=== PATIENT | male | born 1960 | race African-American/Black ===

== ENCOUNTER → 2016-11-27 14:32 | Emergency (ER) | payer SELFPAY ==
[~2016-11-27 14:32] MED LIST: Naproxen TAB* 250 MG PO ONE
[2016-11-27 14:39] VITALS: BP 177/98
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
== END | disposition home or self-care (01) ==
LOC: ED 14:32
DX: S70.02XA Contusion of left hip, initial encounter (principal); S76.012A Strain of muscle, fascia and tendon of left hip, initial encounter; S46.912A Strain of unspecified muscle, fascia and tendon at shoulder and upper arm level, left arm, initial encounter; M25.552 Pain in left hip; Z87.891 Personal history of nicotine dependence; V49.9XXA Car occupant (driver) (passenger) injured in unspecified traffic accident, initial encounter; Y93.9 Activity, unspecified; Y92.9 Unspecified place or not applicable; S16.1XXA Strain of muscle, fascia and tendon at neck level, initial encounter
CPT/HCPCS: 72040; 99282; A9270-GY

== ENCOUNTER 2018-04-04 19:43 | Emergency (ER) | payer OTHER ==
[2018-04-04] MEDS ORDERED: NS 0.9% 1000 ML* 1,000 ML IV ONE ×2 (20:03→20:07)
[2018-04-04] MEDS ORDERED: fentaNYL* 50 MCG/ML 2 ML VIAL (100 MCG VIAL) IV SLOW PU ONE (20:05)
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
[2018-04-04 21:16] VITALS: BP 0/0
== END 2018-04-04 21:15 | disposition left against medical advice (07) ==
LOC: ED 19:43
DX: R07.89 Other chest pain (principal); M25.512 Pain in left shoulder; R00.0 Tachycardia, unspecified; Z87.891 Personal history of nicotine dependence
CPT/HCPCS: 93005; 96374; 99282; J3010

== ENCOUNTER 2018-04-06 10:08 | Emergency (ER) | payer OTHER ==
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
[2018-04-06] MEDS ORDERED: Labetalol IV* 5 MG/ML 20 ML VIAL IV PUSH ONE (10:39)
[2018-04-06 11:07] LABS: ABS Basophils 0 10^3/ul (0-0.2); ABS Eosinophils 0 10^3/ul (0-0.6); ABS Monocytes 0.4 10^3/ul (0-0.8); ABS Nucleated RBC 0 10^3/ul; Eosinophil % 0.6 %; Hematocrit 33 % (42-52); Hemoglobin 11.3 g/dl (14.0-18.0); Lymphocyte % 21.8 %; Mean Corpuscular HGB Conc 34 g/dl (31-36); Mean Corpuscular Hemoglobin 34 pg (27-31); Mean Corpuscular Volume 99 fL (80-94); Mean Platelet Volume 10.4 fL (7.4-10.4); Nucleated Red Blood Cells % 0.2; Platelet Count 110 10^3/ul (150-450); Red Blood Count 3.34 10^6/ul (4.00-5.40); Red Cell Distribution Width 13 % (10.5-15); White Blood Count 4.4 10^3/ul (3.5-10.8)
[2018-04-06 11:41] LABS: EGFR Non-African American 68.5 (>60)
[2018-04-06] MEDS ORDERED: NS 0.9% 1000 ML* 1,000 ML IV ONE (12:10)
[2018-04-06] MEDS ORDERED: Insulin REGULAR(*) 1 UNITS UNIT SUBCUT ONE (12:10)
[2018-04-06] MEDS ORDERED: Hydrochlorothiazide TAB* 25 MG PO ONE (12:11)
[2018-04-06] MEDS ORDERED: Lisinopril TAB* 10 MG PO ONE (12:11)
[2018-04-06 12:38] LABS: Urine Appearance Clear; Urine Blood Negative (Negative); Urine Color Straw; Urine Ketones Trace (Negative); Urine Protein Negative (Negative); Urine Specific Gravity 1.018 (1.010-1.030); Urine Urobilinogen Negative (Negative)
[2018-04-06 13:23] VITALS: BP 192/94
== END 2018-04-06 13:37 | disposition home or self-care (01) ==
LOC: ED 10:08
DX: R07.81 Pleurodynia (principal); R06.02 Shortness of breath; M19.011 Primary osteoarthritis, right shoulder; E11.9 Type 2 diabetes mellitus without complications; I10 Essential (primary) hypertension; Z87.891 Personal history of nicotine dependence
CPT/HCPCS: 36415; 80053; 80307; 80320; 81003; 82550; 85025; 96374; 99283; A9270-GY; G0480

== ENCOUNTER 2018-09-05 20:08 | Inpatient (IN) | payer OTHER ==
[2018-09-05] MEDS ORDERED: NS 0.9% 1000 ML** 1,000 ML IV ONE (20:11)
[2018-09-05] MEDS ORDERED: Ticagrelor* 90 MG TAB PO ONE (20:11)
[2018-09-05] MEDS ORDERED: Heparin for STEMI(*) 5,000 UNITS/ML 1 ML VIAL IV ONE (20:11)
[2018-09-05] MEDS ORDERED: Nitroglycerin TAB 0.4 MG* 0.4 MG TAB ONE (20:22)
[2018-09-05] MEDS ORDERED: nitroGLYCERIN DRIP* 25,000 MCG/250 ML BTL IV ONE (20:22)
--- NOTE | 2018-09-05 20:22 | ED ---
HPI Chest Pain - HPI Summary HPI Summary: This patient is a 57 year old male brought in by ambulance to [facility] with a chief complaint of chest pain since 1 hour ago. Patient states that he was watching TV, about to eat dinner when he felt a sudden crushing chest pain. Patient states that the pain stays relatively constant, not worsening nor improving. The pain is located in his midsternum and does not radiate. The pain is rated 3/10 in severity. Symptoms aggravated by nothing. Symptoms alleviated by nothing. Patient additionally reports SOB, cough. Patient denies nausea - History of Current Complaint Chief Complaint: EDChestPainROMI Time Seen by Provider: 09/05/18 20:11 Hx Obtained From: Patient Onset/Duration: Started Hours Ago, Still Present Timing: Constant Initial Severity: Mild Current Severity: Mild Pain Intensity: 3 Pain Scale Used: 0-10 Numeric Chest Pain Location: Mid Sternal Chest Pain Radiates: No Character: Crushing Aggravating Factor(s): Nothing Alleviating Factor(s): Nothing Associated Signs and Symptoms: Positive: Negative - nausea, Other: - SOB, cough - Allergy/Home Medications Allergies/Adverse Reactions: Allergies Allergy/AdvReac Type Severity Reaction Status Date / Time No Known Allergies Allergy Verified 04/06/18 10:29 PMH/Surg Hx/FS Hx/Imm Hx Previously Healthy: No Endocrine/Hematology History: Reports: Hx Diabetes - TYPE 2 Cardiovascular History: Reports: Hx Hypertension - WELL CONTROLLED Sensory History: Reports: Hx Contacts or Glasses - READING GLASSES Denies: Hx Hearing Aid Opthamlomology History: Reports: Hx Contacts or Glasses - READING GLASSES - Surgical History Surgery Procedure, Year, and Place: HERNIA REPAIR 25 YRS AGO Hx Anesthesia Reactions: No Infectious Disease History: No Infectious Disease History: Denies: Traveled Outside the [place] in Last 30 Days - Family History Known Family History: Negative: Cardiac Disease, Hypertension, Diabetes - Social History Alcohol Use: Weekly Hx Substance Use: No Substance Use Type: Reports: None Hx Tobacco Use: Yes Smoking Status (MU): Former Smoker Type: Cigarettes Have You Smoked in the Last Year: Yes Review of Systems Negative: Fever Positive: Chest Pain Positive: Shortness Of Breath, Cough Negative: Nausea All Other Systems Reviewed And Are Negative: Yes Physical Exam - Summary Physical Exam Summary: Appearance: Well-appearing, Well-nourished, lying in bed with discomfort Skin: Warm, dry, no obvious rash Eyes: sclera anicteric, no conjunctival pallor ENT: mucous membranes moist, pharynx appears normal Neck: Supple, nontender Respiratory: Clear to auscultation, no signs of respiratory distress Cardiovascular: Normal S1, S2. No murmurs. Normal distal pulses in tibial and radial bilaterally. Abdomen: Soft, nontender, normal active bowel sounds present Musculoskeletal: Normal, Strength/ROM Intact Neurological: A&Ox3, awake and alert, mentation is normal, speech is fluent and appropriate Psychiatric: affect is normal, does not appear anxious or depressed Triage Information Reviewed: Yes Vital Signs On Initial Exam: Initial Vitals Temp Pulse Resp BP Pulse Ox 98.3 F 102 16 124/82 93 09/05/18 20:16 09/05/18 20:16 09/05/18 20:16 09/05/18 20:16 09/05/18 20:16 Vital Signs Reviewed: Yes Diagnostics - Vital Signs Vital Signs Temp Pulse Resp BP Pulse Ox 09/05/18 20:16 98.3 F 102 16 124/82 93 - Laboratory Result Diagrams: 09/05/18 20:15 09/05/18 20:15 Lab Statement: Any lab studies that have been ordered have been reviewed, and results considered in the medical decision making process. - Radiology CXR Radiology Interpretation Completed By: ED Physician Summary of Radiographic Findings: CXR reveals, per ED physician, No acute process. Pending official report. - EKG 2013 Cardiac Rate: Tachycardia EKG Rhythm: Sinus Tachycardia - 102 BPM Summary of EKG Findings: An EKG, taken 2013, reveals Sinus Tachycardia (102 BPM) , normal axis, normal intervals, new T-wave elevations in v3-v4, new elevations in v4. Chest Pain Course/Dx - Course Course Of Treatment: This patient is a 57 year old male brought in by ambulance to [facility] with a chief complaint of chest pain since 1 hour ago. Patient states that he was watching TV, about to eat dinner when he felt a sudden crushing chest pain. Patient states that the pain stays relatively constant, not worsening nor improving. The pain is located in his midsternum and does not radiate. An EKG, taken 2013, reveals Sinus Tachycardia (102 BPM), normal axis, normal intervals, new T-wave elevations in v3-v4, new elevations in v4. CXR reveals, per ED physician, No acute process. Pending official report. Bloodwork Obtained. In the ED course the patient was given NS 0.9% bolus IV, NTG, Iodixanol, Heparin, Brilinta. We discussed patient care with Dr. Lambert ( Interventionalist) at 2029 and they noted patients symptoms were indicative of pericardial friction rub. As a result, he will page Dr. Miranda (Metal Bed Assembler) to preform an echo. We discussed patient care with Dr. Guo (Hospitalist) at 2119 and they agreed to accept the patient. Patient will be admitted with a dx of Pericardial friction rub. The patient is agreeable with this plan. - Diagnoses Provider Diagnoses: Pericardial friction rub, Myopericarditis - Provider Notifications Discussed Care Of Patient With: Mejia Hartman - Interventionalist Time Discussed With Above Provider: 20:30 - We discussed patient care with Dr. Lambert (Interventionalist) at 2029 and they noted patients symptoms were indicative of pericardial friction rub. As a result, he will page Dr. Miranda ( Metal Bed Assembler) to preform an echo. Instructed by Provider To: Admit As Inpatient - We discussed patient care with Dr. Guo (Hospitalist) at 2119 and they agreed to accept the patient. Discharge - Sign-Out/Discharge Documenting (check all that apply): Patient Departure Patient Received Moderate/Deep Sedation with Procedure: No - Discharge Plan Condition: Stable Disposition: ADMITTED TO [facility] - Billing Disposition and Condition Condition: STABLE Disposition: Admitted to [facility] - Attestation Statements Document Initiated by Flex: Yes Documenting Scribe: Christine Jacobs Provider For Whom Flex is Documenting (Include Credential): MD Flex Quiñones Attestation: Christine Molina, scribed for Guido Angeles MD on 09/05/18 at 2353. Scribe Documentation Reviewed: Yes Provider Attestation: The documentation as recorded by the Christine adrian accurately reflects the service I personally performed and the decisions made by , Guido Angeles MD Status of Scribe Document: Viewed
[2018-09-05] MEDS ORDERED: nitroGLYCERIN DRIP* 0 MCG/0 ML BTL ONE (20:23)
[2018-09-05] MEDS ORDERED: Iohexol 350 (CONTRAST) 200 ML MDV IV ONE ×2 (20:28→20:29)
[2018-09-05] MEDS ORDERED: Heparin(*) 1000 UNIT/ML 10 ML VIAL CATH LAB IV ONE (20:28)
[2018-09-05] MEDS ORDERED: VERAPAMIL 2.5 MG/ML 2 ML VIAL ** 5 mg/2 ml ONE (20:28)
[2018-09-05] MEDS ORDERED: nitroGLYCERIN DRIP* 25,000 MCG/250 ML BTL ONE (20:28)
[2018-09-05] MEDS ORDERED: Lidocaine 1% INJ* 10 MG/ML 30 ML SDV ONE (20:28)
[2018-09-05 20:29] LABS: ABS Lymphocytes 1.7 10^3/ul (1.0-4.8); ABS Monocytes 0.5 10^3/ul (0-0.8); ABS Neutrophils 5.7 10^3/ul (1.5-7.7); Eosinophil % 0.2 %; Hematocrit 36 % (42-52); Hemoglobin 11.9 g/dL (14.0-18.0); Lymphocyte % 21.6 %; Mean Corpuscular HGB Conc 33 g/dL (31-36); Mean Corpuscular Hemoglobin 33 pg (27-31); Mean Corpuscular Volume 98 fL (80-94); Mean Platelet Volume 9.6 fL (7.4-10.4); Platelet Count 151 10^3/uL (150-450); Red Blood Count 3.65 10^6 /uL (4.18-5.48); Red Cell Distribution Width 13 % (10.5-15)
[2018-09-05 20:42] LABS: ALT 27 U/L (7-52); AST 24 U/L (13-39); Albumin 3.9 g/dL (3.2-5.2); Albumin/Globulin Ratio 1.1 (1-3); Alkaline Phosphatase 70 U/L (34-104); Anion Gap 15 mmol/L (2-11); BUN/Creatinine Ratio 19.8 (8-20); Blood Urea Nitrogen 19 mg/dL (6-24); CO2 Carbon Dioxide 17 mmol/L (22-32); Calcium 8.9 mg/dL (8.6-10.3); Chloride 103 mmol/L (101-111); EGFR Non-African American 80.2 (>60); Globulin 3.4 g/dL (2-4); Glucose 199 mg/dL (70-100); LDL Cholesterol Direct 139 mg/dL; Potassium 3.6 mmol/L (3.5-5.0); Sodium 135 mmol/L (135-145); Total Protein 7.3 g/dL (6.4-8.9)
[2018-09-05 20:46] LABS: Activated Partial Thrombo Time 29.4 seconds (26.0-36.3); CKMB ng/mL 1.5 ng/mL (0.6-6.3); INR 1.03 (0.82-1.09)
[2018-09-05 20:47] LABS: Troponin I 0.05 ng/mL (<0.04)
[2018-09-05] MEDS ORDERED: Iodixanol* (CONTRAST) 320 MG/ML 100 ML SDV IV ONE (21:13)
[2018-09-05] MEDS ORDERED: Dextrose 50% Syringe 50 ML* 25 GM/50 ML SYRINGE IV PUSH PRN (21:31)
[2018-09-05] MEDS ORDERED: Aspirin 81 mg CHEW TAB* 81 MG TAB.CHEW PO ONE (21:33)
[2018-09-05 22:49] LABS: Erythrocyte Sed Rate 39 mm/Hr (0-19)
[2018-09-05] MEDS: Insulin LISPRO* 1 UNITS UNIT SUBCUT SCH (23:32)
--- NOTE | 2018-09-05 23:57 | HP ---
History of Present Illness - History of Present Illness Reason for Visit: chest pain History of Present Illness: PCP: Anita Patient is a 57 year old man with diabetes, hypertension, who suddenly developed 10/10 precordial chest pain at around 8pm this evening. The pain seemed pleuritic initially, then became constant, somewhat positional. He did not have associated dyspnea, nausea, vomiting, or diaphoresis. He has had a severe non-productive cough for 1 week, has not had a fever or myalgias with this. At the time of my evaluation, he is pain free. ED Course: There was initial concern regarding a STEMI in the ER. Dr. Hartman was consulted, and he evaluated patient. He heard a friction rub, and was concerned about pericarditis. Dr. Miranda was consulted, and he performed a bedside echo. Ejection fraction was estimated at 25-30%, and there was global LV dysfunction. The patient was not taken to the director labor standards. 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 Alcohol: Occassional - 5 drinks/weekend Drugs: None Lives: Other - fiance, 4 step children, 6 children from previous relationships Domestic Violence: Negative Review of Systems - Measurements Intake and Output: Intake and Output Last 24 Hours 09/03/18 09/04/18 09/05/18 09/06/18 06:59 06:59 06:59 06:59 Intake Total 1008 Balance 1008 Weight 74.843 kg Intake: IV Fluids 1008 - Review of Systems Constitutional Symptoms: Negative: Weight Gain, Weight Loss Dermatology: Positive: Normal HEENT: Positive: Normal Eyes: Positive: Normal Thyroid: Positive: Normal Pulmonary: Positive: Normal Cardiology: Positive: Chest Pain Negative: Shortness of Breath, Swelling of Ankles, Edema, Syncope, Claudication, Proximal NocturnalDyspnea Gastroenterology: Positive: Normal Genital - Urinary: Positive: Normal Musculoskeletal: Positive: Joint Stiffness Endocrinology: Positive: Diabetes Mellitus Hematologic/Lymphatic: Negative: Anemia, Use of Antiplatelet Drugs Neurology: Positive: Normal Psychiatry: Positive: Normal Objective Active Medications: Ambulatory Orders Hydrochlorothiazide TAB* [Hydrodiuril TAB*] 25 mg PO QAM 02/06/15 Lisinopril [Lisinopril 20 MG-] 20 mg PO QAM 02/06/15 Multivitamin [Multivitamins] 1 cap PO QAM 02/06/15 glipiZIDE TAB* [Glucotrol TAB*] 10 mg PO QAM 02/06/15 Naproxen TAB* [Naprosyn 375 mg TAB*] 375 mg PO Q8H PRN #25 tab 11/27/16 Cyclobenzaprine TAB* [Flexeril 10 MG TAB*] 10 mg PO TID PRN #12 tab 04/06/18 HYDROcodone/ACETAMIN 5-325 MG* [Mccarr 5-325 TAB*] 1 tab PO Q6H PRN #10 tab MDD 4 04/06/18 Vital Signs - 8 hr 09/05/18 09/05/18 09/05/18 20:16 20:35 21:14 Temperature 36.8 C Pulse Rate 102 104 98 Respiratory 16 22 31 Rate Blood Pressure 124/82 122/82 118/73 (mmHg) O2 Sat by Pulse 93 97 97 Oximetry 09/05/18 09/05/18 09/05/18 22:00 22:04 22:11 Temperature 36.6 C Pulse Rate 104 98 99 Respiratory 25 23 22 Rate Blood Pressure 132/83 132/83 (mmHg) O2 Sat by Pulse 97 97 95 Oximetry Oxygen Devices in Use Now: None Appearance: alert, no distress Eyes: No Scleral Icterus Ears/Nose/Mouth/Throat: NL Teeth, Lips, Gums Neck: NL Appearance and Movements; NL JVP, Trachea Midline, No Thyroid Enlargement, Masses, - - thyroid symmetric, but tender nodule just lateral to thyroid on left Respiratory: Symmetrical Chest Expansion and Respiratory Effort, Clear to Auscultation Cardiovascular: RRR, No Edema, - - soft friction rub audible Abdominal: NL Sounds; No Tenderness; No Distention, No Hepatosplenomegaly Lymphatic: No Cervical Adenopathy Skin: No Rash or Ulcers Neurological: Alert and Oriented x 3 Lines/Tubes/Other Access: Clean, Dry and Intact Naso-enteral Tube Nutrition: Taking PO's Result Diagrams: 09/05/18 20:15 09/05/18 20:15 Additional Lab and Data: Laboratory Tests 09/05/18 09/05/1819 20:15 20:15 20:15 ESR 39 H INR (Anticoag Therapy) 1.03 APTT 29.4 Anion Gap 15 H Glucose 199 H Lactic Acid Calcium 8.9 AST 24 ALT 27 CK-MB (CK-2) 1.5 Troponin I 0.05 H* B-Natriuretic Peptide LDL Cholesterol Direct 139 TSH 1.90 09/05/18 09/05/18 20:15 20:15 ESR INR (Anticoag Therapy) APTT Anion Gap Glucose Lactic Acid 4.6 H* Calcium AST ALT CK-MB (CK-2) Troponin I B-Natriuretic Peptide 1084 H LDL Cholesterol Direct TSH Diagnostic Imaging: Chest X-ray- negative CTA Chest: no PE, mild-mod bilat pleural effusions EKG Data: sinus tachycardia, LVH, minimal T-wave flattening II, III, aVF, ST elevations V1 -V4, T-wave inversions V5-V6 Assess/Plan/Problems-Billing Assessment: 57 year old with chest pain, jimi-pericarditis - Patient Problems (1) Myocarditis Current Visit: Yes Status: Acute Priority: High Code(s): I51.4 - MYOCARDITIS, UNSPECIFIED SNOMED Code(s): 50539317 Comment: -Due to low EF and no symptoms of LV dysfunction over time, suspect acute viral or other myocarditis. -Due to friction rub present, suspect element of pericarditis, which could explain the pain. With no effusion present, no clear need to investigate for autoimmune, fungal pericarditis -Formal echocardiogram to be completed tomorrow -Will be admitted to telemetry floor, will follow serial troponins. -Dr. Miranda will give full consultation in AM (2) Type 2 diabetes mellitus Current Visit: Yes Status: Acute Priority: Medium Comment: -May be NPO for testing in next few days -Will cut oral glipizide by half, add sliding scale Humalog. (3) Lactic acid blood increased Current Visit: Yes Status: Acute Priority: Medium Code(s): R79.89 - OTHER SPECIFIED ABNORMAL FINDINGS OF BLOOD CHEMISTRY SNOMED Code(s): 7797480 Comment: -Differential includes poor perfusion due to cardiac dysfunction, vs Type 2 lactic acidosis -not on metformin -Will repeat lactate in 3 hours. (4) Thyroiditis Current Visit: Yes Status: Acute Priority: Medium Code(s): E06.9 - THYROIDITIS, UNSPECIFIED SNOMED Code(s): 48396135 Comment: -May have tender thyroid or lymph node adjacent to thyroid w/ acute lymphadenitis -TSH normal -Will check T3, T4, and thyroid ultrasound (5) DVT prophylaxis Current Visit: Yes Status: Acute Priority: Low Code(s): Z29.9 - ENCOUNTER FOR PROPHYLACTIC MEASURES, UNSPECIFIED SNOMED Code(s): 738695829 Comment: -Low risk -Early ambulation Status and Disposition: inpatient
[2018-09-06 02:28] LABS: Troponin I 0.04 ng/mL (<0.04)
[2018-09-06] MEDS: Carvedilol TAB* 3.125 MG PO SCH ×3 (04:04→20:47)
[2018-09-06 05:14] LABS: BUN/Creatinine Ratio 15.2 (8-20); Calcium 9.1 mg/dL (8.6-10.3); EGFR African American 101.9 (>60); EGFR Non-African American 84.2 (>60); Potassium 3.9 mmol/L (3.5-5.0)
[2018-09-06 05:18] LABS: Troponin I 0.03 ng/mL (<0.04)
[2018-09-06] MEDS: Aspirin 81 mg CHEW TAB* 81 MG TAB.CHEW PO SCH (08:11)
[2018-09-06] MEDS: glipiZIDE TAB* 5 MG PO SCH (08:12)
[2018-09-06] MEDS: Lisinopril TAB* 10 MG PO SCH (08:13)
[2018-09-06] MEDS: Insulin LISPRO* 1 UNITS UNIT SUBCUT SCH ×4 (08:19→20:48)
[2018-09-06] MEDS ORDERED: Furosemide IV* 10 MG/ML 2 ML VIAL (20 MG) IV ONE ×2 (08:32→13:12)
[2018-09-06 08:36] LABS: Troponin I 0.04 ng/mL (<0.04)
[2018-09-06] MEDS ORDERED: Perflutren Lipid Microsphere* 3 ML VIAL ONE (10:29)
--- NOTE | 2018-09-06 11:44 | ECHO ---
*[facility]* [place] [address] Fax #: [phone] Transthoracic Echocardiogram Patient: Celestino, Height: 71 in / Serafin 180.3 cm : 1960 Weight: 164.7 lb / Study Date: 09/06/2018 74.8 kg Age: 57 BP: 160 / 110 Gender: M BMI/BSA: 23 kg/m^2 / HR: 98 bpm 1.94 m^2 *Exec. Creative Director: * Susan Patterson RDCS RN *Referring Physician: * Mendel Guo *Reading Physician: * Warner Miranda MD Indications: Chest Pain, unspecified. Congestive Heart Failure. History: Risk factors: Former tobacco use. Hypertension. Diabetes mellitus. Conclusions Summary: 1. Left ventricle: The cavity size is mildly dilated. Systolic function is severely reduced. The estimated ejection fraction is 10-15%. Diffuse severe hypokinesis. 2. Right ventricle: Systolic function is moderately reduced. 3. Mitral valve: There is mild to moderate regurgitation. 4. Aortic valve: There is trivial regurgitation. 5. Tricuspid valve: There is mild-moderate regurgitation. 6. Pulmonary arteries: Systolic pressure is estimated to be 40 mm Hg. 7. Study data: No prior study is available for comparison. Study data: Transthoracic echocardiogram. Procedure: Transthoracic echocardiography was performed. Image quality was good. A total of 3 ml of diluted Definity was given IV by Lidia Patterson RN, [facility] for image enhancement. Complete 2D, spectral Doppler, and color flow Doppler. Patient status: Inpatient. Patient room number: 433. No prior study is available for comparison. Rhythm: Normal sinus rhythm. Findings Left ventricle: The cavity size is mildly dilated. Systolic function is severely reduced. The estimated ejection fraction is 10-15%. Diffuse hypokinesis. Features are consistent with a pseudonormal left ventricular filling pattern, with concomitant abnormal relaxation and increased filling pressure (grade 2 diastolic dysfunction). Right ventricle: The cavity size is normal. Systolic function is moderately reduced. The estimated peak pressure is 33 mm Hg. There is borderline pulmonary hypertension. Left atrium: The atrium is mildly dilated. Right atrium: The atrium is normal in size. Mitral valve: The leaflets are mildly thickened. There is no evidence of stenosis. There is mild to moderate regurgitation. The peak diastolic gradient is 6.7 mm Hg. Aortic valve: The leaflets are mildly thickened. There is no evidence of stenosis. There is trivial regurgitation. The LVOT to aortic valve VTI ratio is 0.46. The ratio of LVOT to aortic valve peak velocity is 0.58. The ratio of LVOT to aortic valve mean velocity is 0.63. The mean systolic gradient is 2.0 mm Hg. The peak systolic gradient is 4.0 mm Hg. Tricuspid valve: The valve is structurally normal. There is no evidence of stenosis. There is mild-moderate regurgitation. Pulmonic valve: The valve is structurally normal. There is no evidence of stenosis. There is trivial regurgitation. The peak systolic gradient is 1.0 mm Hg. Aorta: Aortic root: The aortic root is not dilated. Ascending aorta: The ascending aorta is not dilated. Aortic arch: The aortic arch is not visualized. Pericardium: There is no significant pericardial effusion. Pulmonary arteries: The main pulmonary artery is normal-sized. Systolic pressure is estimated to be 40 mm Hg. Systemic veins: Inferior vena cava: The vessel is normal in size. The respirophasic diameter changes are blunted (< 50%). Measurements Left ventricle Value Ref Aortic valve Value Ref FERNANDO, LAX (H) 6.3 cm 4.2 - Kelly diam, ED 2.2 cm ----- 5.8 Peak v, S 0.97 m/sec ----- ESD, LAX (H) 5.8 cm 2.5 - Mean v, S 0.66 m/sec ----- 4.0 VTI, S 16.8 cm ----- FS, LAX (L) 8 % 25 - 43 Mean grad, S 2.0 mm Hg ----- PW, ED, LAX 1.0 cm 0.6 - Peak grad, S 4.0 mm Hg ----- 1.0 E', lat kelly, TDI (L) 4.6 cm/sec >=10.0 Mitral valve Value R ef E/e', lat kelly, TDI 28 -------- Peak E 1.29 m/sec ---- - E', med kelly, TDI (L) 3.9 cm/sec >=7.0 Peak A 0.89 m/sec - ---- E/e', med kelly, TDI 33 -------- Decel time 120 ms ---- - E', avg, TDI 4.3 cm/sec -------- Peak grad, D 6.7 mm Hg ---- - E/e', avg, TDI (H) 30 <=14 Peak E/A ratio 1.4 - ---- MR alias velocity 0.31 m/sec ----- LVOT Value Ref MR PISA radius 0.5 cm ----- Peak darby, S 0.56 m/sec -------- Max MR v 4.09 m/sec ----- Mean darby, S 0.42 m/sec -------- Regurg VTI 124.0 cm ----- VTI, S 7.7 cm -------- ERO, PISA 0.12 cm^2 ----- Mean grad, S 1 mm Hg -------- MR vol, PISA 15 ml ----- Ventricular septum Value Ref Tricuspid valve Value Ref IVS, ED, LAX 0.9 cm 0.6 - TR peak v 2.5 m/sec <=2.8 1.0 Peak RV-RA grad, S 25 mm Hg ----- Right ventricle Value Ref Aortic root Value Ref FERNANDO, LAX 3.4 cm -------- Root diam 2.8 cm <4.1 FERNANDO minor ax, A4C 3.3 cm 1.9 - Root max diam, ED 2.8 cm <4.1 mid 3.5 Ascending aorta Value Ref Left atrium Value Ref AAo AP diam, S 3.1 cm ----- ML dim, A4C 4.1 cm -------- SI dim, A4C 6.3 cm -------- Inferior vena cava Value Ref Vol/bsa, ES, 1-p 27 ml/m^2 12 - 37 Diam 1.9 cm ----- A4C Vol/bsa, ES, A/L (H) 38 ml/m^2 16 - 34 Right atrium Value Ref ML dim, ES, A4C 4.3 cm 2.6 - 4.4 SI dim, ES, A4C 5.1 cm 3.4 - 5.3 Legend: (L) and (H) kirill values outside specified reference range. Prepared and electronically signed by Warner Miranda MD 09/06/2018 11:43
--- NOTE | 2018-09-06 13:10 | PN ---
Subjective Date of Service: 09/06/18 Interval History: Pt c/o cough and PND x 7 days. Phillip leg edema or weight gain. CP presents at admission resolved Drinks 3 glasses of hard liquor /day Has remote h/o IVD use Objective Active Medications: Aspirin (Aspirin 81 Mg Chew Tab*) 81 mg PO DAILY [facility] Last Admin: 09/06/18 08:11 Dose: 81 mg Carvedilol (Coreg Tab*) 3.125 mg PO BID [facility] Last Admin: 09/06/18 08:12 Dose: 3.125 mg Dextrose (D50w Syringe 50 Ml*) 12.5 gm IV PUSH .FOR FS < 60 - SS PRN PRN Reason: FS < 60 Glipizide (Glucotrol Tab*) 5 mg PO [facility] Last Admin: 09/06/18 08:12 Dose: 5 mg Insulin Human Lispro (Humalog*) 0 units [facility]; Protocol Last Admin: 09/06/18 11:52 Dose: Not Given Lisinopril (Prinivil Tab*) 20 mg PO [facility] Last Admin: 09/06/18 08:13 Dose: 20 mg Vital Signs - 8 hr 09/06/18 09/06/18 07:18 08:00 Temperature 97.9 F Pulse Rate 108 Respiratory 24 16 Rate Blood Pressure 141/97 (mmHg) O2 Sat by Pulse 100 Oximetry Oxygen Devices in Use Now: None Appearance: 57 uo M in nAD, aAOx3 Eyes: No Scleral Icterus, PERRLA Ears/Nose/Mouth/Throat: NL Teeth, Lips, Gums, Mucous Membranes Moist Neck: - - JVD noted b/l Respiratory: Symmetrical Chest Expansion and Respiratory Effort, - - crackles at b/l bases Cardiovascular: NL Sounds; No Murmurs; No JVD, RRR Abdominal: NL Sounds; No Tenderness; No Distention, No Hepatosplenomegaly Lymphatic: No Cervical Adenopathy Extremities: No Edema Skin: No Rash or Ulcers, No Nodules or Sclerosis Neurological: Alert and Oriented x 3, NL Muscle Strength and Tone Result Diagrams: 09/05/18 20:15 09/06/18 04:52 Additional Lab and Data: Laboratory Tests 09/05/18 09/05/18 09/05/18 20:15 20:15 20:15 ESR 39 H INR (Anticoag Therapy) 1.03 APTT 29.4 Anion Gap 15 H Glucose 199 H Lactic Acid Calcium 8.9 AST 24 ALT 27 CK-MB (CK-2) 1.5 Troponin I 0.05 H* B-Natriuretic Peptide LDL Cholesterol Direct 139 TSH 1.90 09/05/18 09/05/18 20:15 20:15 ESR INR (Anticoag Therapy) APTT Anion Gap Glucose Lactic Acid 4.6 H* Calcium AST ALT CK-MB (CK-2) Troponin I B-Natriuretic Peptide 1084 H LDL Cholesterol Direct TSH Diagnostic Imaging: Chest X-ray- negative CTA Chest: no PE, mild-mod bilat pleural effusions EKG Data: sinus tachycardia, LVH, minimal T-wave flattening II, III, aVF, ST elevations V1 -V4, T-wave inversions V5-V6 Assess/Plan/Problems-Billing Assessment: 57 year old with chest pain, cardiomyopathy-new EF 20% - Patient Problems (1) Acute systolic CHF (congestive heart failure) Comment: with EF 20% cont daily weights Cont Tx with Lasix daily suspect CP was related to CHF. Trop at 0.04-likley demand ischemia in face of SHF LDL 139-start liptor (2) Cardiomyopathy Comment: the differential inculdes: myocarditis, ETOH induced CM, CAD Echo shows EF 20% May need a life Vest Appreciate DR. Miranda's consult cont ACEI, BB (3) Lactic acid blood increased Comment: likely due poor perfusion due to cardiac dysfunction (4) Thyroiditis Comment: -May have tender thyroid or lymph node adjacent to thyroid noted at admission, thyroid US pending -TSH normal -Will check FT3 WNL, T3 total -low (unknown significance) (5) Type 2 diabetes mellitus Comment: cont oral glipizide( half home dose) , sliding scale Humalog. HbA1c pending (6) DVT prophylaxis Comment: -Low risk -Early ambulation Status and Disposition: inpatient
[2018-09-06] MEDS: Atorvastatin* 40 MG TAB PO SCH (17:08)
--- NOTE | 2018-09-07 03:38 | CONS ---
CC: Dr. Howard * CARDIOLOGY CONSULTATION: DATE OF CONSULT: 09/06/18 INDICATION FOR CONSULTATION: Cardiomyopathy, chest pain. HISTORY OF PRESENT ILLNESS: The patient is a 57-year-old gentleman with a history of hypertension and diabetes, who came to the emergency room because of severe chest pain. The patient reports that he has been having a cough and shortness of breath for about 7 days. He denied any fevers. He denied any chest pain. He denied any palpitations. No lightheadedness, dizziness, or syncope. The patient says that yesterday he had a sudden onset of 10/10 chest pain, it was in his anterior chest, he was short of breath, he was transported emergently to the emergency department. On arrival, his EKG demonstrated sinus tachycardia with minimal ST-segment depressions, no clear evidence of ST-segment elevation. Dr. Hartman was asked to come and see the patient because of his crushing chest pain. I was called in to see the patient last night for an echocardiogram, which showed diffuse LV dysfunction and no focal wall motion abnormalities. The patient was admitted to the hospital. Overnight, the patient's chest pain resolved. This morning, he is pain-free, he still has a nonproductive cough. He denies any fevers or chills. He denies any chest pain. He denies any lightheadedness or dizziness. PAST MEDICAL HISTORY: Significant for hypertension, diabetes. PAST SURGICAL HISTORY: Unknown. OUTPATIENT MEDICATIONS: 1. Glucotrol 5 mg 2 tablets a day. 2. Hydrochlorothiazide 25 mg a day. 3. Lisinopril 20 mg a day. 4. Flexeril 10 mg a day. 5. Oxycodone as needed. ALLERGIES: No known drug allergies. FAMILY HISTORY: No family history of early coronary artery disease or cardiac arrhythmias. SOCIAL HISTORY: He is here with his fiancee. He is currently not working. He denies tobacco or alcohol use. The patient states that he did use alcohol and illicit drugs but that was more than 5 years ago. REVIEW OF SYSTEMS: Positive for cough. Positive for fevers. Positive for shortness of breath. Negative for changes in bowel or bladder habits. Negative for change in weight. Other 12-point review is unremarkable. PHYSICAL EXAM: Height is 5 feet 11 inches, weight is 162 pounds, temperature 97.9, heart rate 108, blood pressure 141/97, respiratory rate is 22, oxygen saturation 100% on room air. Sclerae anicteric. Oropharynx is pink without erythema. Carotids are 2+ without bruits. JVD is normal. Thyroid is normal. Cardiac Exam: S1 and S2 without any murmurs, rubs, or gallops. There is no evidence of a rub that was heard last night. PMI is normal. Lungs are clear to auscultation. There is no dullness to percussion. Abdomen is soft, nontender , and nondistended with normoactive bowel sounds. Extremities show No edema. He has 2+ pulse throughout. The patient is awake, alert, and oriented. He moves all 4 extremities equally. DIAGNOSTIC STUDIES/LAB DATA: CBC within normal limits. Chemistries within normal limits. BUN 14, creatinine 0.9. AST and ALT are normal. Troponin levels are minimally elevated at 0.05. TSH is normal. EKG as described above. The patient did get a CTA of his chest showing no evidence for pulmonary embolism, no evidence of infiltrates, no pericardial effusion. IMPRESSION: This is a 57-year-old gentleman who was brought to the hospital because of severe crushing chest pain. He described it as a 10/10 pain when he arrived to the emergency room. His EKG did not show any evidence of ST-segment elevation and echocardiogram does show severe LV dysfunction, ejection fraction of 20% with [id number] mitral regurgitation. At this point, I am not exactly sure what the cause of his cardiomyopathy is, it is likely a viral syndrome. I cannot find any other causes. He is a 57-year -old gentleman with a history of diabetes, so coronary artery disease cannot be excluded. For now, my recommendation is to continue maximal medical therapy. The patient will be started on Coreg 3.125 mg b.i.d., lisinopril 20 mg a day, spironolactone should be started at either 12.5 or 25 mg a day. Further recommendations pending this hospital course. Again at some point, the patient should probably get a cardiac catheterization whether it is in-hospital or as an outpatient is yet to be determined [id number]/[facility] #: [id number] MTDD
[2018-09-07 07:31] LABS: ABS Lymphocytes 1.4 10^3/ul (1.0-4.8); ABS Monocytes 0.8 10^3/ul (0-0.8); ABS Neutrophils 5.9 10^3/ul (1.5-7.7); Eosinophil % 0.2 %; Hematocrit 39 % (42-52); Hemoglobin 12.8 g/dL (14.0-18.0); Lymphocyte % 17.3 %; Mean Corpuscular HGB Conc 33 g/dL (31-36); Mean Corpuscular Hemoglobin 33 pg (27-31); Mean Corpuscular Volume 99 fL (80-94); Nucleated Red Blood Cells % 0.1; Platelet Count 128 10^3/uL (150-450); Red Blood Count 3.89 10^6 /uL (4.18-5.48); Red Cell Distribution Width 13 % (10.5-15); White Blood Count 8.2 10^3/uL (3.5-10.8)
[2018-09-07 07:42] LABS: BUN/Creatinine Ratio 18.7 (8-20); Calcium 9.1 mg/dL (8.6-10.3); EGFR African American 85.6 (>60); EGFR Non-African American 70.7 (>60); Potassium 3.6 mmol/L (3.5-5.0)
[2018-09-07] MEDS ORDERED: Carvedilol TAB* 3.125 MG PO SCH (09:00)
[2018-09-07] MEDS ORDERED: Furosemide IV* 10 MG/ML VIAL (40 MG) IV SCH (09:00)
[2018-09-07] MEDS: Insulin LISPRO* 1 UNITS UNIT SUBCUT SCH ×3 (09:19→17:35)
[2018-09-07] MEDS: Lisinopril TAB* 10 MG PO SCH (09:21)
[2018-09-07] MEDS: Aspirin 81 mg CHEW TAB* 81 MG TAB.CHEW PO SCH (09:22)
[2018-09-07] MEDS: glipiZIDE TAB* 5 MG PO SCH (09:22)
--- NOTE | 2018-09-07 09:22 | PN ---
Subjective Date of Service: 09/07/18 Interval History: Pt feels well. Slept well, no SOB, cough resolved. Wants to go home Objective Active Medications: Aspirin (Aspirin 81 Mg Chew Tab*) 81 mg PO DAILY [facility] Last Admin: 09/06/18 08:11 Dose: 81 mg Atorvastatin Calcium (Lipitor*) 40 mg PO 1700 [facility] Last Admin: 09/06/18 17:08 Dose: 40 mg Carvedilol (Coreg Tab*) 6.25 mg PO BID [facility] Dextrose (D50w Syringe 50 Ml*) 12.5 gm IV PUSH .FOR FS < 60 - SS PRN PRN Reason: FS < 60 Furosemide (Lasix Iv*) 40 mg IV DAILY [facility] Furosemide (Lasix Tab*) 20 mg PO DAILY [facility] Glipizide (Glucotrol Tab*) 5 mg PO QAM [facility] Last Admin: 09/06/18 08:12 Dose: 5 mg Insulin Glargine (Lantus(*)) 5 units SUBCUT Q24H [facility] Insulin Human Lispro (Humalog*) 0 units SUBCUT ACHS [facility]; Protocol Last Admin: 09/06/18 20:48 Dose: 4 unit Lisinopril (Prinivil Tab*) 20 mg PO QAM [facility] Last Admin: 09/06/18 08:13 Dose: 20 mg Vital Signs - 8 hr 09/07/18 09/07/18 09/07/18 03:43 08:00 08:23 Temperature 97.8 F 97.9 F Pulse Rate 94 94 Respiratory 18 16 16 Rate Blood Pressure 118/79 115/86 (mmHg) O2 Sat by Pulse 97 99 Oximetry Oxygen Devices in Use Now: None Appearance: 57 yo M in nAD, aAOx3 Eyes: No Scleral Icterus, PERRLA Ears/Nose/Mouth/Throat: NL Teeth, Lips, Gums, Mucous Membranes Moist Neck: NL Appearance and Movements; NL JVP, Trachea Midline Respiratory: Symmetrical Chest Expansion and Respiratory Effort, - - fine bibasiliar crackles Cardiovascular: NL Sounds; No Murmurs; No JVD Abdominal: NL Sounds; No Tenderness; No Distention Lymphatic: No Cervical Adenopathy Extremities: No Edema Skin: No Rash or Ulcers, No Nodules or Sclerosis Neurological: Alert and Oriented x 3, NL Muscle Strength and Tone Result Diagrams: 09/07/18 06:22 09/07/18 06:22 Additional Lab and Data: Laboratory Tests 09/05/18 09/05/18 09/05/18 20:15 20:15 20:15 ESR 39 H INR (Anticoag Therapy) 1.03 APTT 29.4 Anion Gap 15 H Glucose 199 H Lactic Acid Calcium 8.9 AST 24 ALT 27 CK-MB (CK-2) 1.5 Troponin I 0.05 H* B-Natriuretic Peptide LDL Cholesterol Direct 139 TSH 1.90 09/05/18 09/05/18 20:15 20:15 ESR INR (Anticoag Therapy) APTT Anion Gap Glucose Lactic Acid 4.6 H* Calcium AST ALT CK-MB (CK-2) Troponin I B-Natriuretic Peptide 1084 H LDL Cholesterol Direct TSH Diagnostic Imaging: Chest X-ray- negative CTA Chest: no PE, mild-mod bilat pleural effusions EKG Data: sinus tachycardia, LVH, minimal T-wave flattening II, III, aVF, ST elevations V1 -V4, T-wave inversions V5-V6 Assess/Plan/Problems-Billing Assessment: 57 year old with chest pain, cardiomyopathy-new EF 20% - Patient Problems (1) Acute systolic CHF (congestive heart failure) Comment: with EF 20% today almost euvolemic. will start daily PO Lasix d/w Dr. Miranda , pt wants to go home today but needs Life Vest. will talk with CM suspect CP was related to CHF. Trop at 0.04-likely demand ischemia in face of CHF LDL 139-started liptor (2) Cardiomyopathy Comment: the differential inculdes: myocarditis, ETOH induced CM, CAD Echo shows EF 20% Appreciate DR. Miranda's consult, life Vest in the process cont ACEI, BB (Coreg's dose increased to 6.25 BID) (3) Lactic acid blood increased Comment: likely due poor perfusion due to cardiac dysfunction (4) Type 2 diabetes mellitus Comment: cont oral glipizide( half home dose) , sliding scale Humalog. HbA1c 8.5 (5) Cervical lymphadenopathy Comment: -Had tender lymph node adjacent to thyroid noted at admission, US shows mildly tender cervical LN-likely reactive -TSH normal -Will check FT3 WNL, T3 total -low (unknown significance) (6) DVT prophylaxis Comment: -Low risk -Early ambulation Status and Disposition: inpatient
[2018-09-07] MEDS ORDERED: Insulin GLARGINE(*) 1 UNITS UNIT SUBCUT SCH (10:00)
[2018-09-07] MEDS ORDERED: Potassium Chlor TAB* 10 MEQ TAB.ER PO SCH (10:00)
[2018-09-07] MEDS ORDERED: Furosemide TAB* 20 MG PO SCH (10:00)
[2018-09-07] MEDS: Atorvastatin* 40 MG TAB PO SCH (17:35)
[2018-09-07 19:19] VITALS: BP 97/73
[2018-09-08] MEDS ORDERED: Furosemide TAB* 20 MG PO SCH (10:00)
== END 2018-09-07 20:16 | disposition home or self-care (01) | DRG 291 ==
LOC: ED 20:08 → MEDTELE 21:25 → ED 22:11
PROVIDERS: ADMIT Internal Medicine; ATTEND Internal Medicine
DX: I11.0 Hypertensive heart disease with heart failure (principal); I50.21 Acute systolic (congestive) heart failure; I24.8 Other forms of acute ischemic heart disease; I42.9 Cardiomyopathy, unspecified; E11.9 Type 2 diabetes mellitus without complications; B34.9 Viral infection, unspecified; R79.89 Other specified abnormal findings of blood chemistry; E06.9 Thyroiditis, unspecified; M19.049 Primary osteoarthritis, unspecified hand; R59.0 Localized enlarged lymph nodes; Z80.0 Family history of malignant neoplasm of digestive organs; Z82.49 Family history of ischemic heart disease and other diseases of the circulatory system; Z83.3 Family history of diabetes mellitus; Z81.2 Family history of tobacco abuse and dependence; Z87.891 Personal history of nicotine dependence; Z79.84 Long term (current) use of oral hypoglycemic drugs; Z79.899 Other long term (current) drug therapy
CPT/HCPCS: 36415; 71045; 71275; 76536; 80048; 80053; 82553; 83036; 83605; 83721; 83880; 84443; 84479; 84481; 84484; 85025; 85610; 85652; 85660; 85730; 86703; 93005; 93306; 99285; A9270-GY; C8929; J1644; J1940; Q9967

== ENCOUNTER 2018-10-06 18:20 | Observation (INO) | payer OTHER ==
--- OUTSIDE RECORDS SUMMARY | 2018-10-06 18:44 | XMS REPORT | Continuity of Care Document ---
:1960 External Reference #:[id number] Author Name Kavita Brady Care Team Providers Name Role Phone Jaleel Howard MD Primary Care Physician Unavailable Payers Date Identification Numbers Payment Provider Subscriber Policy Number: [id number] [employer] Insurance Serafin Tirado PayID: [id number] [address] [place] [address] Problems Active Problems Provider Date Closed fracture of metacarpal bone Salvador Gallego M.D. Onset: 04/30/2013 Family History Date Family Member(s) Observation Comments General Diabetes Social History Type Date Description Comments Sex Unknown Lives With Family Occupation Currently Working ETOH Use Denies alcohol use Tobacco Use Start: Unknown End: Patient is a former quit 5 years ago Unknown smoker Recreational Drug Use Denies Drug Use Smoking Status Reviewed: 10/06/18 Patient is a former quit 5 years ago smoker Exercise Type/Frequency Does not exercise Allergies, Adverse Reactions, Alerts Description No Known Drug Allergies Medications Active Medications SIG Qnty Indications Ordering Provider Date Glipizide 1 by mouth twice Unknown 10mg Tablets a day Centrum Adults as directed Unknown Tablets Spironolactone 1 by mouth every Unknown 25mg Tablets day Atorvastatin Calcium 1 by mouth every Unknown 40mg day at 5 pm Tablets Carvedilol 1 by mouth twice Unknown 6.25mg Tablets a day Aspirin 81 1 by mouth every Unknown 81mg Tablets DR day History Medications Hydrochlorothiazide 1 by mouth every Unknown - 09/15/2018 25mg Tablets day Vital Signs Date Vital Result Comment 10/06/2018 9:53am Height 71 inches 5'11" Weight 144.00 lb with shoes Heart Rate 68 /min BP Systolic Sitting 110 mmHg lue reg cuff BP Diastolic Sitting 70 mmHg lue reg cuff BP Systolic Standing 110 mmHg lue reg cuff BP Diastolic Standing 68 mmHg lue reg cuff Respiratory Rate 18 /min BMI (Body Mass Index) 20.1 kg/m2 Ejection Fraction 20-25% echo. 10/02/18 09/16/2018 2:38pm Height 71 inches 5'11" Weight 156.00 lb w/o shoes Heart Rate 80 /min BP Systolic Sitting 114 mmHg Lue reg cuff BP Diastolic Sitting 82 mmHg Lue reg cuff BP Systolic Standing 112 mmHg Rue reg cuff BP Diastolic Standing 80 mmHg Rue reg cuff BP Systolic Lying Down 118 mmHg Rue reg cuff BP Diastolic Lying Down 88 mmHg Rue reg cuff Respiratory Rate 17 /min BMI (Body Mass Index) 21.8 kg/m2 Ejection Fraction 10-15% 09/06/18 echo 05/20/2017 8:29am Heart Rate 84 /min BP Systolic Sitting 130 mmHg BP Diastolic Sitting 86 mmHg Respiratory Rate 18 /min Body Temperature 97.2 F 05/12/2017 10:36am Height 69 inches 5'9" Weight 160.00 lb Heart Rate 72 /min BP Systolic 142 mmHg BP Diastolic 90 mmHg Respiratory Rate 18 /min Body Temperature 97.3 F BMI (Body Mass Index) 23.6 kg/m2 Results Test Date Facility Test Result H/L Range Note Cath Panel 10/06/2018 [facility] Partial Thrombo <pending> [address] [place] [address] [phone] Procedures Date Code Description Status 10/02/2018 17771 ECHO Transthoracic, Real-Time 2D With Doppler And Color Completed Flow 09/16/2018 43629 EKG Tracing & Interpretation Completed 09/06/2018 54574 ECHO Transthorasic Realtime 2D W Doppler & Color Flow Hosp Completed 05/12/2017 64837 Excision Tumor, Soft Tissue, Forearm/Wrist, Subfacial, < 3 Completed CM 02/13/2015 29198 Repair Hernia Inguinal > 5Yrs, Reducible Completed 08/27/2012 35917 Rad Exam; Hand Limited Completed 08/13/2012 22967 Rad Exam; Hand Limited Completed 07/31/2012 94370 Closed [place] Metacarpal FX Single W/O Manipulation, Ea Bone Completed 07/31/2012 33089 Closed [place] Metacarpal FX Single W/O Manipulation, Ea Bone Completed Encounters Type Date Location Provider Dx Diagnosis Office Visit 09/16/2018 [facility] Warner Merino I42.9 Cardiomyopathy, 2:45p Of Sandi Miranda M.D. unspecified I34.0 Nonrheumatic mitral (valve) insufficiency R07.9 Chest pain, unspecified R94.31 Abnormal electrocardiogram [ECG] [EKG] Office Visit 09/06/2018 [facility] Luisa Yara, I50.21 Acute systolic 10:24a fabien Bradford M.D. 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 [facility] [place] 11:30 am - Warner Miranda M.D. at [facility]10/06/2018 - Jeannie White N.P.I42.9 Cardiomyopathy, unspecifiedNew Orders:Cardiac Catheterization, Left, Ordered: 10/06/18Comments: Heart function is still lowFollow up:1 week wound check Brand or day when we are in the office together.Recommendations:Recommend left heart cath you will need labs beforehand. I will discuss with Dr Miranda the implantable defibrillator.I34.0 Nonrheumatic mitral (valve) wikpfesfifshiM74.9 Type 2 diabetes mellitus without sbmadulxvfrakC22.31 Abnormal electrocardiogram [ECG] [ EKG]
--- OUTSIDE RECORDS SUMMARY | 2018-10-06 18:44 | XMS REPORT | Continuity of Care Document ---
:1960 External Reference #:[id number] Author Name Bhavani Villagomez Care Team Providers Name Role Phone Jaleel Howard MD Primary Care Physician Unavailable Payers Date Identification Numbers Payment Provider Subscriber Policy Number: [id number] [employer] Insurance Serafin Tirado PayID: [id number] [address] [place] [address] Problems Active Problems Provider Date Closed fracture [...] Use Denies Drug Use Smoking Status Reviewed: 09/16/18 Patient is a former quit 5 years [...] day Vital Signs Date Vital Result Comment 09/16/2018 2:38pm Height 71 inches 5'11" Weight [...] F BMI (Body Mass Index) 23.6 kg/m2 Procedures Date Code Description Status 09/16/2018 64718 EKG Tracing & Interpretation Completed 09/06/2018 01311 ECHO Transthorasic Realtime 2D W Doppler & Color Flow Hosp Completed 05/12/2017 26839 Excision Tumor, Soft Tissue, Forearm/Wrist, Subfacial, < 3 Completed CM 02/13/2015 70090 Repair Hernia Inguinal > 5Yrs, Reducible Completed 08/27/2012 70954 Rad Exam; Hand Limited Completed 08/13/2012 18341 Rad Exam; Hand Limited Completed 07/31/2012 66693 Closed [place] Metacarpal FX Single W/O Manipulation, Ea Bone Completed 07/31/2012 12433 Closed [place] Metacarpal FX Single W/O Manipulation, Ea Bone Completed Encounters Type Date Location Provider Dx Diagnosis Office Visit 09/16/2018 [facility] Warner Merino I42.9 Cardiomyopathy, 2:45p Of Sandi Miranda M.D. unspecified I34.0 Nonrheumatic mitral (valve) insufficiency R07.9 Chest pain, unspecified Office Visit 09/06/2018 [facility] I42.9 Cardiomyopathy, 2:50p Cardiology Of Denise Miranda unspecified [employer] I51.9 Heart disease, unspecified I34.0 Nonrheumatic mitral (valve) insufficiency R07.9 Chest pain, unspecified Plan of Treatment Future Appointment(s):10/06/2018 10:00 am - Jeannie White N.P. at [facility]10/02/2018 9:00 am - Traveling ECHO 2 at [facility]09/16/2018 - Warner Miranda M.D.I42.9 Cardiomyopathy, unspecifiedNew Labs: Basic Metabolic Panel, Ordered: 09/16/18New Orders:Echocardiogram, Ordered: Follow up:after echo with NPI34.0 Nonrheumatic mitral (valve) tyrifhpzuyzrwZ24.9 Chest pain, unspecified
--- OUTSIDE RECORDS SUMMARY | 2018-10-06 18:44 | XMS REPORT | Continuity of Care Document ---
:1960 External Reference #:[id number] Author Name RaulIlda truong Care Team Providers Name Role Phone Jaleel Howard MD Primary Care Physician Unavailable Payers Date Identification Numbers Payment Provider Subscriber Policy Number: [id number] [employer] Insurance Serafin Tirado PayID: [id number] [address] [place] [address] Advance Directives Description No Information Available Problems Active Problems Provider Date Closed fracture of metacarpal bone Salvador Gallego M.D. 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 ETOH Use Drinks 3 Alcoholic Beverages Per Week Tobacco Use Start: Unknown End: Patient is a former smoker Unknown Smoking Status Reviewed: 05/20/17 Patient is a former smoker Exercise Type/Frequency Exercises regularly Allergies, Adverse Reactions, Alerts Description No Known Drug Allergies Medications Active Medications SIG Qnty Indications Ordering Date Provider Glipizide 1 by mouth Unknown 10mg Tablets twice a day Hydrochlorothiazide 1 by mouth Unknown 25mg Tablets every day Centrum Adults as directed Unknown Tablets Immunizations Description No Information Available Vital Signs Date Vital Result Comment 05/20/2017 8:29am Heart Rate 84 /min BP Systolic Sitting 130 mmHg BP Diastolic Sitting 86 mmHg Respiratory Rate 18 /min Body Temperature 97.2 F 05/12/2017 10:36am Height 69 inches 5'9" Weight 160.00 lb Heart Rate 72 /min BP Systolic 142 mmHg BP Diastolic 90 mmHg Respiratory Rate 18 /min Body Temperature 97.3 F BMI (Body Mass Index) 23.6 kg/m2 Results Description No Information Available Procedures Date Code Description Status 09/06/2018 08058 ECHO Transthorasic Realtime 2D W Doppler & Color Flow Hosp Completed 05/12/2017 64393 Excision Tumor, Soft Tissue, Forearm/Wrist, Subfacial, < 3 Completed CM 02/13/2015 23786 Repair Hernia Inguinal > 5Yrs, Reducible Completed 08/27/2012 82192 Rad Exam; Hand Limited Completed 08/13/2012 97700 Rad Exam; Hand Limited Completed 07/31/2012 75173 Closed [place] Metacarpal FX Single W/O Manipulation, Ea Bone Completed 07/31/2012 45391 Closed [place] Metacarpal FX Single W/O Manipulation, Ea Bone Completed Encounters Type Date Location Provider Dx Diagnosis Office Visit 09/06/2018 [facility] Warner Merino I42.9 Cardiomyopathy, 2:50p Of Sandi Miranda M.D. unspecified I51.9 Heart disease, unspecified I34.0 Nonrheumatic mitral (valve) insufficiency R07.9 Chest pain, unspecified Plan of Treatment Future Appointment(s):09/16/2018 2:45 pm - Warner Miranda M.D. at [facility]05/20/2017 - Ailyn Lau, NPD17.79 Benign lipomatous neoplasm of other sitesFollow up:None mgncmnA72.01 Encounter for change or removal of surgical wound dressing
--- NOTE | 2018-10-06 19:06 | ED ---
HPI Diabetic - HPI Summary HPI Summary: This pt is a 57 y/o male presenting to [facility] for elevated blood glucose level today. Pt reports he had blood work done for Dr. Miranda today and was called to come to the ED for an elevated blood glucose of 758. He states he drank "sugar" before having his blood drawn today. Pt notes feeling well currently. He denies any complaints. Denies chest pain, nausea, vomiting, SOB. PMHx includes HTN, DM, Myocarditis (recently on 09/05/18). Pt is wearing a cardiac vest. His medications include Glipizide. Pt notes he used to drink alcohol every day but quit after he was dx with myocarditis. - History Of Current Complaint Chief Complaint: EDDiabeticProb Time Seen by Provider: 10/06/18 18:36 Hx Obtained From: Patient Severity Currently: None Character: Alert Aggravating: Other - drank sugar before blood work Alleviating: Nothing Associated Signs & Symptoms: Negative Related History: DM II - Allergies/Home Medications Allergies/Adverse Reactions: Allergies Allergy/AdvReac Type Severity Reaction Status Date / Time No Known Allergies Allergy Verified 10/06/18 18:30 PMH/Surg Hx/FS Hx/Imm Hx Endocrine/Hematology History: Reports: Hx Diabetes - Type 2 Cardiovascular History: Reports: Hx Hypertension - WELL CONTROLLED, Other Cardiovascular Problems/Disorders - cardiomyopathy Musculoskeletal History: Reports: Hx Arthritis Sensory History: Reports: Hx Contacts or Glasses - READING GLASSES Denies: Hx Hearing Aid Opthamlomology History: Reports: Hx Contacts or Glasses - READING GLASSES - Surgical History Surgery Procedure, Year, and Place: HERNIA REPAIR 25 YRS AGO Hx Anesthesia Reactions: No Infectious Disease History: No Infectious Disease History: Denies: Traveled Outside the [place] in Last 30 Days - Family History Known Family History: Positive: Cardiac Disease - sister with MO x2, Diabetes Negative: Hypertension Family History: Father with throat/lung CA, was a smoker. - Social History Alcohol Use: Weekly Hx Substance Use: No Substance Use Type: Reports: None Hx Tobacco Use: Yes Smoking Status (MU): Former Smoker Type: Cigarettes Have You Smoked in the Last Year: Yes Review of Systems Negative: Fever Negative: Chest Pain Negative: Shortness Of Breath Negative: Vomiting, Nausea All Other Systems Reviewed And Are Negative: Yes Physical Exam - Summary Physical Exam Summary: GENERAL: Patient is a well-developed and nourished male who is lying comfortable in the stretcher. Patient is not in any acute respiratory distress. HEAD AND FACE: Normocephalic EYES: PERRLA, EOMI x 2. EARS: Hearing grossly intact. MOUTH: Oropharynx within normal limits. NECK: Supple, trachea is midline, no adenopathy, no JVD, no carotid bruit. CHEST: Symmetric, no tenderness at palpation. Pt is wearing a cardiac vest. LUNGS: Clear to auscultation bilaterally. No wheezing or crackles. CVS: Regular rate and rhythm, S1 and S2 present, no murmurs or gallops appreciated. ABDOMEN: Soft, non-tender. Bowel sounds are normal. No abnormal abdominal pulsations. EXTREMITIES: Full ROM in all major joints, no edema, no cyanosis or clubbing. NEURO: Alert and oriented x 3. No acute neurological deficits. Speech is normal and follows commands. SKIN: Dry and warm Triage Information Reviewed: Yes Vital Signs On Initial Exam: Initial Vitals Temp Pulse Resp BP Pulse Ox 97.3 F 91 16 99/75 100 10/06/18 18:27 10/06/18 18:27 10/06/18 18:27 10/06/18 18:27 10/06/18 18:27 Vital Signs Reviewed: Yes Diagnostics - Vital Signs Vital Signs Temp Pulse Resp BP Pulse Ox 10/06/18 18:27 97.3 F 91 16 99/75 100 - Laboratory Result Diagrams: 10/06/18 19:20 10/06/18 19:20 Lab Statement: Any lab studies that have been ordered have been reviewed, and results considered in the medical decision making process. Re-Evaluation - Re-Evaluation First Eval Re-Evaluation Time: 20:35 Comment: Reviewed results with the pt. Discussed admission plan with pt. He understands and agrees to admission. Diabetic Course/Dx - Course Assessment/Plan: Pt is a 57 y/o male, with hx of DM, cardiomyopathy, presenting to [facility] for elevated blood glucose level today. Blood glucose was found to be 758. Test results remarkable for sodium of 118, anion gap of 16, creatinine of 1.65, glucose is 834, calcium of 11, CRP of 34.7, lipase of 290. Pt was placed on an insulin drip in the ED. Case discussed with Dr. Franks, hospitalist, who accepted the pt for admission. I discussed results with patient. The patient agrees with this plan. - Diagnoses Provider Diagnoses: Hyperglycemia - Physician Notifications Discussed Care Of Patient With: Sara Franks - hospitalist Time Discussed With Above Provider: 20:31 Instructed by Provider To: Admit As Inpatient - Critical Care Time Critical Care Time: 75-104 min Discharge - Sign-Out/Discharge Documenting (check all that apply): Patient Departure - Admit to [facility] Patient Received Moderate/Deep Sedation with Procedure: No - Discharge Plan Condition: Stable Disposition: ADMITTED TO [facility] Referrals: Jaleel Howard MD [Primary Care Provider] - - Billing Disposition and Condition Condition: STABLE Disposition: Admitted to [facility] - Attestation Statements Document Initiated by Scribe: Yes Documenting Scribe: Sussy Lock Provider For Whom Flex is Documenting (Include Credential): Darren Nagel MD Scribe Attestation: Sussy Molina, scribed for Darren Nagel MD on 10/06/18 at 2124. Scribe Documentation Reviewed: Yes Provider Attestation: The documentation as recorded by the [email or web address] ugalde accurately reflects the service I personally performed and the decisions made by me, Darren Nagel MD Status of Scribe Document: Viewed
[2018-10-06 19:36] LABS: ABS Lymphocytes 0.9 10^3/ul (1.0-4.8); ABS Monocytes 0.5 10^3/ul (0-0.8); ABS Neutrophils 5.3 10^3/ul (1.5-7.7); Eosinophil % 0.5 %; Hematocrit 47 % (42-52); Hemoglobin 15.3 g/dL (14.0-18.0); Lymphocyte % 12.9 %; Mean Corpuscular HGB Conc 33 g/dL (31-36); Mean Corpuscular Hemoglobin 32 pg (27-31); Mean Corpuscular Volume 96 fL (80-94); Mean Platelet Volume 12.5 fL (7.4-10.4); Platelet Count 134 10^3/uL (150-450); Red Blood Count 4.85 10^6 /uL (4.18-5.48); Red Cell Distribution Width 13 % (10.5-15); White Blood Count 6.8 10^3/uL (3.5-10.8)
[2018-10-06 19:46] LABS: Activated Partial Thrombo Time 31.6 seconds (26.0-38.0); INR 0.97 (0.82-1.09)
[2018-10-06 19:57] LABS: Albumin 4.1 g/dL (3.2-5.2); Albumin/Globulin Ratio 0.9 (1-3); BUN/Creatinine Ratio 28.5 (8-20); C Reactive Protein 34.71 mg/L (<8.01); EGFR African American 51.9 (>60); EGFR Non-African American 42.9 (>60); Globulin 4.5 g/dL (2-4); Magnesium 2.5 mg/dL (1.9-2.7); Total Bilirubin 0.4 mg/dL (0.2-1.0); Total Protein 8.6 g/dL (6.4-8.9)
[2018-10-06 20:00] LABS: Potassium 5.1 mmol/L (3.5-5.0)
[2018-10-06] MEDS ORDERED: NS 0.9% 1000 ML** 500 ML IV ONE (20:12)
[2018-10-06] MEDS ORDERED: Insulin IVPB 100 units/100 ml 100 UNITS/100 ML UNIT IVPB ONE (20:22)
[2018-10-06 21:05] LABS: Urine Appearance Clear; Urine Bilirubin Negative (Negative); Urine Blood Negative (Negative); Urine Color Straw; Urine Glucose 3+(>=500 mg/dL) (Negative); Urine Ketones Trace (Negative); Urine Nitrite Negative (Negative); Urine Protein Negative (Negative); Urine Specific Gravity 1.027 (1.010-1.030); Urine Urobilinogen Negative (Negative)
[2018-10-06] MEDS ORDERED: NS 0.9% 1000 ML** 1,000 ML IV ONE ×2 (21:16→21:31)
[2018-10-06] MEDS ORDERED: Acetaminophen TAB* 325 MG PO PRN (21:32)
[2018-10-06] MEDS ORDERED: Ondansetron INJ* 2 MG/ML VIAL IV PRN (21:32)
[2018-10-06] MEDS ORDERED: Al Hydrox/Mg Hydrox/Simet LIQ* 30 ML UDC PO PRN (21:32)
[2018-10-06] MEDS ORDERED: NS 0.9% 1000 ML** 1,000 ML IV SCH (21:45)
[2018-10-06] MEDS: Carvedilol TAB* 6.25 MG PO SCH (23:00)
--- NOTE | 2018-10-06 23:08 | HP ---
CC: Dr. Howard; Warner Miranda MD * HISTORY AND PHYSICAL: DATE OF ADMISSION: 10/06/18 TIME OF EVALUATION: 2100 PRIMARY CARE PHYSICIAN: Dr. Howard. PRESS SET UP PERSON: Warner Miranda MD CHIEF COMPLAINT: Elevated glucose. HISTORY OF PRESENT ILLNESS: This is a 57-year-old male who was recently admitted last month, discharged on 09/07/18 with a new diagnosis of cardiomyopathy and ejection fraction of 20, sent home on a LifeVest, thought to be related to alcohol use. The patient went in to see Dr. Miranda today for a followup visit, did routine labs. His labs were noted to have hyperglycemia with a glucose of 758 and they recommended to go to the emergency room for further evaluation. The patient was present here with his fiancee at the bedside. He states he drank a wheat shake just prior to arrival. He thought it was due to that. He states he always thirsty and thus is always peeing a lot but nothing out of the ordinary for him over the past few days. He admits to not checking his blood sugars on a routine basis. He states he last checked it about a week ago and it was around 200. He denies any chest pain or shortness of breath. No palpitations. No nausea, vomiting, diarrhea. He is complaining on the left side a lymph node, that he has been complaining about for a while. He did stop drinking since his last admission last month. He was a significant drinker and has not drank since. His weight is actually down from 172 pounds from the beginning of the year to down to 144 pounds. No leg swelling. He did have some mid abdominal discomfort as he was constipated, last bowel movement yesterday. He has been compliant with his LifeVest and his medications. His LifeVest has not been triggered. He denies any recent illness. No fevers or chills. No URI illness. Otherwise review of systems is negative. In the emergency room, the patient had labs. He was given 1 L of fluid and concern for his ejection fraction. He was started on insulin drip immediately. Otherwise remaining review of systems is negative. PAST MEDICAL HISTORY: 1. Hypertension. 2. Osteoarthritis. 3. Diabetes. 4. Cardiomyopathy with ejection fraction of 20%. 5. History of acute decompensated systolic congestive heart failure. 6. Hyperlipidemia. 7. History of alcohol use. MEDICATIONS: The patient states no changes in his medications since he was discharged on 09/07/18, which are as follows: 1. Aldactone 25 mg p.o. daily. 2. Hydrocodone acetaminophen as needed. 3. Flexeril 10 mg t.i.d. as needed. 4. Coreg 6.25 mg b.i.d. 5. Lipitor 40 mg daily. 6. Aspirin 81 mg daily. 7. Multivitamin daily. 8. Lisinopril 20 mg daily. 9. Glipizide 10 mg daily. ALLERGIES: No known drug allergies. FAMILY HISTORY: Father with throat and lung cancer, smoker and CAD. Sister with 2 MIs and diabetes. SOCIAL HISTORY: The patient lives with his janeeanceeCinthya, who is his healthcare proxy. 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 He also quit heavy drinking. He states he was drinking 1 to 2 nips per day. He quit drinking when he was admitted last month as he quit smoking 5 years ago. No illicit drug use. Code status: Full code. REVIEW OF SYSTEMS: A 14-point review of systems as mentioned in the HPI, otherwise negative. PHYSICAL EXAMINATION GENERAL: In no acute distress. Resting comfortably with his brijesh at the bedside. VITAL SIGNS: Temp 97.3, pulse 91, respiratory rate 16, oxygen saturation 100% on room air, blood pressure 99/75. HEENT: Head: Normocephalic. Pupils are equal and reactive, anicteric. Oropharynx: Mucous membranes are moist. NECK: Supple. Does have some fullness and mild adenopathy on the left neck. RESPIRATORY: Diminished breath sounds. No wheezes, rhonchi, or rales. CARDIAC: Regular rate and rhythm. Soft systolic murmur heard throughout. ABDOMEN: Soft, nontender, nondistended. EXTREMITIES: No clubbing, cyanosis, or edema. +1 DPs. NEUROLOGIC: Alert and oriented x3. No gross focal neurologic deficits. DIAGNOSTIC STUDIES/LAB DATA: White count 6.8, hemoglobin 15.3, hematocrit 47, platelets 134. INR 0.97. PH is 7.37. Sodium 118, potassium 5.1, chloride 83, bicarb 19, BUN 47, creatinine 1.65, glucose 835, lipase is 290. Urine showed trace ketones, +3 glucose. ASSESSMENT AND PLAN: This is a 57-year-old male with past medical history of diabetes, was recently diagnosed with cardiomyopathy with ejection fraction of 20, who sent to the emergency room after having routine labs done in the Cardiology office, found to have hyperglycemia. 1. Hyperglycemia. The patient with an anion gap metabolic acidosis, could be multifactorial from his hyperglycemia and also acute kidney injury. His pH is normal. He has trace ketones in his urine, so he would be considered to have mild hyperosmolar hyperglycemic state. Hyperosmolar hyperglycemic state. Assessment: Will have to be careful with his fluid resuscitation in the setting of his EF being 20%. We will give him 2 more liters of fluid and repeat his BMP. He is only getting 500 cc bolus currently. Going to hold his insulin drip at this time and just fluid resuscitate him carefully being mindful of his EF. I suspect his gap will close relatively quickly. His hemoglobin A1c last month was 8.5. He was only taking one oral antihyperglycemic agent. We will repeat a hemoglobin A1c now, but suspect that he may be able to be managed with oral agents at discharge. We will put in for a nutrition consult and endocrinology consult to help with education on diabetic diet and outpatient management for his diabetes. 3. Acute kidney injury. Suspect multifactorial in the setting of his hyperosmolar hyperglycemic state. He was also on lisinopril and Aldactone with some hyperkalemia. Plan will be to hold his lisinopril and his Aldactone. Repeat his labs in the morning. 4. Cervical adenopathy: Patient c/o left sided adenopathy. Had an ultrasound last month that showed mildly enlarged cervical chain. Appears to have persisted on exam today. Patient may benefit from fine needle aspiration. 5. Chronic medical problems, has history of cardiomyopathy with an EF of 20 as mentioned above. We will also continue him on his aspirin, his Coreg and his Lipitor. I would recommend touching base with Cardiology, who just evaluated him earlier today, let them know to see if there is anything further from a cardiac standpoint that needs to be addressed while he is an inpatient though it does not appear to be the case. He did just have an echo done last week. Recommend follow up to see if there is improvement in his EF. Still wearing his life vest, need to follow up with cardiology regarding this as well since he needs to be able to charge it at home. 6. FEN. We will keep him n.p.o., ice chips for now until his gap is closed, and then place him on a diabetic diet once it is. 7. DVT prophylaxis. The patient scores moderate risk. We will place him on heparin subcu t.i.d. 8. Code status: Full code. PATIENT TIME: Greater than 50 minutes was spent doing the history and physical , more than half the time was direct patient contact and critical care time. [id number]/CPS #: [id number] JANICE
[2018-10-06 23:10] LABS: Anion Gap 6 mmol/L (2-11); BUN/Creatinine Ratio 26.8 (8-20); Blood Urea Nitrogen 41 mg/dL (6-24); CO2 Carbon Dioxide 20 mmol/L (22-32); Calcium 9.7 mg/dL (8.6-10.3); Chloride 91 mmol/L (101-111); EGFR African American 56.7 (>60); EGFR Non-African American 46.8 (>60); Glucose Confirmatory 541 mg/dL (70-100); Magnesium 3.2 mg/dL (1.9-2.7)
[2018-10-06 23:11] LABS: Glucose 541 mg/dL (70-100); Sodium 117 mmol/L (135-145)
[2018-10-06 23:33] LABS: TSH (Thyroid Stimulating Horm) 1.34 mcIU/mL (0.34-5.60)
[2018-10-07 01:40] LABS: BUN/Creatinine Ratio 26.1 (8-20); Calcium 9.2 mg/dL (8.6-10.3); EGFR African American 61.7 (>60); Potassium 4.8 mmol/L (3.5-5.0)
[2018-10-07] MEDS ORDERED: Dextrose 50% Syringe 50 ML* 25 GM/50 ML SYRINGE IV PUSH PRN ×2 (01:55→01:56)
[2018-10-07] MEDS ORDERED: Insulin LISPRO* 1 UNITS UNIT SUBCUT ONE (01:55)
[2018-10-07] MEDS ORDERED: NS 0.9% 1000 ML** 1,000 ML IV SCH (01:57)
[2018-10-07] MEDS ORDERED: Insulin GLARGINE(*) 1 UNITS UNIT SUBCUT SCH (02:00)
--- NOTE | 2018-10-07 02:01 | PN ---
Progress Note - Progress Note Date of Service: 10/07/18 Note: Gap closed after fluids, will decrease IVFs and give lantus 10 units and lispro and start diabetic diet.
[2018-10-07] MEDS ORDERED: NS 0.9% 500 ML* 500 ML IV ONE (04:35)
[2018-10-07 05:18] LABS: ABS Lymphocytes 1.1 10^3/ul (1.0-4.8); ABS Monocytes 0.6 10^3/ul (0-0.8); ABS Neutrophils 3.3 10^3/ul (1.5-7.7); Eosinophil % 0.6 %; Hematocrit 34 % (42-52); Hemoglobin 11.3 g/dL (14.0-18.0); Lymphocyte % 21.5 %; Mean Corpuscular HGB Conc 33 g/dL (31-36); Mean Corpuscular Hemoglobin 31 pg (27-31); Mean Corpuscular Volume 95 fL (80-94); Mean Platelet Volume 12.1 fL (7.4-10.4); Nucleated Red Blood Cells % 0.1; Platelet Count 98 10^3/uL (150-450); Red Blood Count 3.59 10^6 /uL (4.18-5.48); Red Cell Distribution Width 13 % (10.5-15)
[2018-10-07 05:27] LABS: BUN/Creatinine Ratio 25.8 (8-20); Blood Urea Nitrogen 31 mg/dL (6-24); CO2 Carbon Dioxide 19 mmol/L (22-32); Calcium 8.5 mg/dL (8.6-10.3); Chloride 105 mmol/L (101-111); Glucose 325 mg/dL (70-100); Magnesium 1.9 mg/dL (1.9-2.7); Sodium 132 mmol/L (135-145)
[2018-10-07 05:29] LABS: Anion Gap 8 mmol/L (2-11)
[2018-10-07] MEDS: Heparin VIAL(*) 5000 UNITS/ML VIAL (FIVE THOUSAND) SUBCUT SCH ×2 (06:22→13:20)
[2018-10-07] MEDS ORDERED: Lorazepam PYXIS KEY ONE (08:49)
[2018-10-07] MEDS ORDERED: Aspirin 81 mg CHEW TAB* 81 MG TAB.CHEW PO SCH (09:00)
[2018-10-07] MEDS: Insulin LISPRO* 1 UNITS UNIT SUBCUT SCH ×4 (09:00→13:17)
[2018-10-07] MEDS: Carvedilol TAB* 6.25 MG PO SCH (09:03)
--- NOTE | 2018-10-07 10:01 | CONSULT ---
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 The etiology of HHS is likely combination of diet, pancreatic dysfunction and recent steroid use. He achieved rapid resolution of hyperglycemia and related metabolic disturbances with IV then SQ insulin. While basal insulin is usually indicated in patients with severe hyperglycemia, he is unable and unwilling to start insulin injections at home. His A1c in September 2018 suggests that he is able to maintain glycemic control with diet + glipizide. Due to history of CHFrEF, he is also indicated for SGLT2i such as Farxiga/Jardiance, both of which have demonstrated mortality benefit in patients with CHF. He is not a candidate for other oral medications, such as metformin and pioglitazone. Cost of medication and food are critically- important factors for him; we have obtained a coupon for Farxiga and a local food prescription program. This information was transmitted to him in written form during the consult. He will continue to check fingerstick BG at least once daily, ideally in the morning, and follow-up in my clinic in 2 weeks. Note is made of elevated lipase was found on labs, but he does not have clinically- significant pancreatitis. PLAN: - check lipid profile (ordered as add-on) - resume glipizide 10mg BID - start Farxiga 5mg daily (script sent to pharmacy) - start low-carbohydrate diet (handout provided and discussed) - refer to [employer] food prescription program - follow-up with endocrine on 10/22/18 at 10:20am SUBJECTIVE: History of Present Illness: 57 yo M with no significant PMH who was found to have cardiomyopathy in September 2018. His jection fraction has remained low since then and he has used a Lifevest. Recent cardiology recommendation includes cardiac catheterization to assess his coronary system, so blood work on 10/06/18 was ordered, which revealed severe hyperglycemia with pseudohyponatremia and mild anion gap elevation with bicarb 20. He was referred to ED, where insulin drip was started. He was diagnosed with T2DM in 2008 and has been followed by Dr. Howard at [facility]. He has lost a significant amount of weight in the past month since his cardiac hospitalization. He complains of chronic polyuria, polydipsia and polyphagia during this time. He has not consumed alcohol in >1 month. Past Medical History: 1. CHFrEF 2. Hypertension 3. Osteoarthritis 4. Type 2 Diabetes Medications Prior to Admission: Lisinopril [Lisinopril 20 MG-] 20 mg PO QAM 02/06/15 [History Confirmed 10/06/18 ] Multivitamin [Multivitamins] 1 cap PO QAM 02/06/15 [History Confirmed 10/06/18] glipiZIDE TAB* [Glucotrol TAB*] 10 mg PO BID 02/06/15 [History Confirmed ] Aspirin 81 mg CHEW TAB* 81 mg PO DAILY #30 tab.chew 09/07/18 [Rx Confirmed 10/06] Atorvastatin* [Lipitor 40 MG*] 40 mg PO 1700 #30 tab 09/07/18 [Rx Confirmed 08/21] Carvedilol TAB* [Coreg TAB*] 6.25 mg PO BID #60 tab 09/07/18 [Rx Confirmed 10/06] Spironolactone [Aldactone 25 MG-] 25 mg PO DAILY #30 tab 09/07/18 [Rx Confirmed 10/06/18] Inpatient Medications: Acetaminophen (Tylenol Tab*) 650 mg PO Q4H PRN PRN Reason: FEVER/PAIN Al Hydrox/Mg Hydrox/Simethicone (Maalox Plus*) 30 ml PO Q6H PRN PRN Reason: INDIGESTION Aspirin (Aspirin 81 Mg Chew Tab*) 81 mg PO DAILY [facility] Last Admin: 10/07/18 09:03 Dose: 81 mg Atorvastatin Calcium (Lipitor*) 40 mg PO 1700 [facility] Carvedilol (Coreg Tab*) 6.25 mg PO BID [facility] Last Admin: 10/07/18 09:03 Dose: 6.25 mg Dextrose (D50w Syringe 50 Ml*) 12.5 gm IV PUSH .FOR FS < 60 - SS PRN PRN Reason: FS < 60 Heparin Sodium (Porcine) (Heparin Vial(*)) 5,000 units SUBCUT Q8HR [facility] Last Admin: 10/07/18 06:22 Dose: 5,000 units Insulin Glargine (Lantus(*)) 10 units SUBCUT Q24H [facility] Last Admin: 10/07/18 02:23 Dose: 10 unit Insulin Human Lispro (Humalog*) 0 units SUBCUT [facility]; Protocol Last Admin: 10/07/18 09:00 Dose: Not Given Insulin Human Lispro (Humalog*) 0 units SUBCUT [facility]; Protocol Last Admin: 10/07/18 09:02 Dose: 4 units Ondansetron HCl (Zofran Inj*) 4 mg IV Q4H PRN PRN Reason: NAUSEA/VOMITING Allergies/Intolerances: NKDA Social History: Lives with brijesh. Former heavy alcohol consumption, quit September 2018. Former smoker. Employed at [employer]. Family History: Diabetes. Lung cancer. Review of Systems: As above. No recent illness. Mild upper abdominal. OBJECTIVE: Temp Pulse Resp BP Pulse Ox 97.9 F 71 17 108/72 100 10/07/18 03:34 10/07/18 07:15 10/07/18 07:15 10/07/18 07:15 10/07/18 07:15 General: alert, pleasant, oriented, no distress ENT: neck supple, no thyromegaly, no bruit is heard Chest: CTAB, no wheezing or crackles CV: RRR, no murmur Abdomen: soft, non-tender Extremities: no edema, distal pulses intact Skin: warm, dry, no rash Neuro: grossly intact motor/sensory in extremities Psych: restricted affect, pleasant Labs: Glucose Results 10/07/18 04:00 417 10/07/18 07:35 331 WBC 5.0 10^3/uL (3.5-10.8) 10/07/18 04:55 RBC 3.59 10^6 /uL (4.18-5.48) L 10/07/18 04:55 Hgb 11.3 g/dL (14.0-18.0) L 10/07/18 04:55 Hct 34 % (42-52) L 10/07/18 04:55 MCV 95 fL (80-94) H 10/07/18 04:55 MCH 31 pg (27-31) 10/07/18 04:55 MCHC 33 g/dL (31-36) 10/07/18 04:55 RDW 13 % (10.5-15) 10/07/18 04:55 Plt Count 98 10^3/uL (150-450) L 10/07/18 04:55 MPV 12.1 fL (7.4-10.4) H 10/07/18 04:55 Neut % (Auto) 65.7 % 10/07/18 04:55 Lymph % (Auto) 21.5 % 10/07/18 04:55 Elliott % (Auto) 11.7 % 10/07/18 04:55 Eos % (Auto) 0.6 % 10/07/18 04:55 Baso % (Auto) 0.5 % 10/07/18 04:55 Absolute Neuts (auto) 3.3 10^3/ul (1.5-7.7) 10/07/18 04:55 Absolute Lymphs (auto) 1.1 10^3/ul (1.0-4.8) 10/07/18 04:55 Absolute Monos (auto) 0.6 10^3/ul (0-0.8) 10/07/18 04:55 Absolute Eos (auto) 0.0 10^3/ul (0-0.6) 10/07/18 04:55 Absolute Basos (auto) 0.0 10^3/ul (0-0.2) 10/07/18 04:55 Absolute Nucleated RBC 0.0 10^3/ul 10/07/18 04:55 Nucleated RBC % 0.1 10/07/18 04:55 INR (Anticoag Therapy) 0.97 (0.82-1.09) 10/06/18 19:20 APTT 31.6 seconds (26.0-38.0) 10/06/18 19:20 VBG pH 7.37 (7.32-7.43) 10/06/18 19:20 VBG pCO2 36 mmHg (41-51) L 10/06/18 19:20 VBG pO2 < 38.0 mmHg (35-45) 10/06/18 19:20 VBG HCO3 20.8 mmol/L (24-28) L 10/06/18 19:20 VBG O2 Saturation 60.2 % (70-80) L 10/06/18 19:20 VBG Base Excess -3.9 mmol/L (0.0-4.0) L 10/06/18 19:20 Sodium 132 mmol/L (135-145) L 10/07/18 04:55 Potassium 4.6 mmol/L (3.5-5.0) 10/07/18 08:56 Chloride 105 mmol/L (101-111) 10/07/18 04:55 Carbon Dioxide 19 mmol/L (22-32) L 10/07/18 04:55 Anion Gap 8 mmol/L (2-11) 10/07/18 04:55 BUN 31 mg/dL (6-24) H 10/07/18 04:55 Creatinine 1.20 mg/dL (0.67-1.17) H 10/07/18 04:55 Est GFR ( Amer) 75.0 (>60) 10/07/18 04:55 Est GFR (Non-Af Amer) 62.0 (>60) 10/07/18 04:55 BUN/Creatinine Ratio 25.8 (8-20) H 10/07/18 04:55 Glucose 325 mg/dL (70-100) H 10/07/18 04:55 POC Glucose (mg/dL) 331 mg/dL (70-100) H 10/07/18 07:36 Glucose Meter Confirm 473 mg/dL (70-100) H 10/07/18 01:11 Lactic Acid 1.6 mmol/L (0.5-2.0) 10/06/18 19:20 Calcium 8.5 mg/dL (8.6-10.3) L 10/07/18 04:55 Magnesium 1.9 mg/dL (1.9-2.7) 10/07/18 04:55 Total Bilirubin 0.40 mg/dL (0.2-1.0) 10/06/18 19:20 AST 22 U/L (13-39) 10/06/18 19:20 ALT 31 U/L (7-52) 10/06/18 19:20 Alkaline Phosphatase 131 U/L (34-104) H 10/06/18 19:20 C-Reactive Protein 34.71 mg/L (<8.01) H 10/06/18 19:20 Total Protein 8.6 g/dL (6.4-8.9) 10/06/18 19:20 Albumin 4.1 g/dL (3.2-5.2) 10/06/18 19:20 Globulin 4.5 g/dL (2-4) H 10/06/18 19:20 Albumin/Globulin Ratio 0.9 (1-3) L 10/06/18 19:20 Lipase 290 U/L (11.0-82.0) H 10/06/18 19:20 TSH 1.34 mcIU/mL (0.34-5.60) 10/06/18 22:30 Urine Color Straw 10/06/18 20:34 Urine Appearance Clear 10/06/18 20:34 Urine pH 5.0 (5-9) 10/06/18 20:34 Ur Specific [place] 1.027 (1.010-1.030) 10/06/18 20:34 Urine Protein Negative (Negative) 10/06/18 20:34 Urine Ketones Trace (Negative) A 10/06/18 20:34 Urine Blood Negative (Negative) 10/06/18 20:34 Urine Nitrate Negative (Negative) 10/06/18 20:34 Urine Bilirubin Negative (Negative) 10/06/18 20:34 Urine Urobilinogen Negative (Negative) 10/06/18 20:34 Ur Leukocyte Esterase Negative (Negative) 10/06/18 20:34 Urine Glucose 3+(>=500 mg/dl) (Negative) A 10/06/18 20:34
[2018-10-07 14:15] LABS: Cholesterol 94 mg/dL; HDL Cholesterol 21.3 mg/dL; LDL Cholesterol 56 mg/dL; Triglycerides 85 mg/dL
[2018-10-07 16:10] VITALS: BP 124/75
[2018-10-07] MEDS ORDERED: Atorvastatin* 40 MG TAB PO SCH (17:00)
--- NOTE | 2018-10-08 05:01 | DS ---
CC: Dr. Howard; Dr. Miranda; Dr. Reyes * DISCHARGE SUMMARY: DATE OF ADMISSION: 10/06/18 DATE OF DISCHARGE: Against medical advice, 10/07/18 PRIMARY CARE PROVIDER: Dr. Howard. PARA PROFESSIONAL: Dr. Miranda. DISCHARGE DIAGNOSES: 1. Hyperosmolar hyperglycemic state secondary to dietary noncompliance. 2. Dehydration secondary to the above. 3. Left cervical adenopathy. SECONDARY DIAGNOSES: 1. Hypertension. 2. Osteoarthritis. 3. Type 2 diabetes. 4. Cardiomyopathy with ejection fraction of 20% with systolic congestive heart failure. 5. Hyperlipidemia. 6. Alcohol use. MEDICATION LIST: Unfortunately, the patient did not stay long enough to get his medication list, but prescription for new medication was sent to his pharmacy. Medication list is as follows: 1. Aspirin 81 mg p.o. daily. 2. Atorvastatin 40 mg p.o. daily. 3. Coreg 6.25 mg p.o. b.i.d. 4. Glipizide 10 mg p.o. b.i.d. 5. Lisinopril 20 mg p.o. daily. 6. Multivitamin 1 capsule p.o. daily. 7. Aldactone 25 mg p.o. daily. 8. Farxiga 5 mg p.o. daily was added by Endocrinology. HOSPITAL COURSE: Mr. Tirado is a 57-year-old male with past medical history as stated above that was [place] [facility] [place] when he was newly diagnosed with cardiomyopathy with ejection fraction of 20% thought to be related to alcohol use. He was discharged with a LifeVest and yesterday he went to see Dr. Miranda for regular followup and he was noted to have a glucose of 758. He was advised to come to the emergency room for further evaluation. The patient states that he had pancake, regular pancake syrup and a wheat milkshake that was sweetened with sugar prior to this number. He states that he does not know what type of foods he is supposed to eat and he usually does not check his fingersticks either. For more details about his presentation, I refer you to his history and physical. The patient was diagnosed with hyperosmolar hyperglycemic state and admitted to ICU for an insulin drip. He responded well to the management and was later on switch to Lantus. Hemoglobin A1c level was checked and was measured at 14.7. The patient was seen in consultation by Endocrinology (Dr. Reyes) and his recommendation was for basal insulin but the patient stated that he was unable and was unwilling to start insulin injections at home. Dr. Reyes's recommendation was to continue diet, glipizide, and due to his history of CHF with reduced ejection fraction, he also has indicated SGLT2I such as Farxiga, which has demonstrated mortality benefit in patients with CHF. Dr. Reyes also gave him a coupon for Farxiga and also for a local food prescription program. His plan is for the patient to check his fingersticks at home at least once a day, ideally in the morning and follow up with him in clinic in [address] Reyes sent a script for Farxiga to the pharmacy. On his prior admission in September, the patient complained of a tender "lump" on the left side of his neck. He was supposed to have a biopsy done as outpatient, but this has not happened. A soft tissue ultrasound was done at that time and revealed mildly enlarged cervical chain lymph node measuring 1.6 x 1 x 0.7 cm and another one measuring 1.8 x 1.3 x 0.6 cm. As the patient failed to make arrangements as outpatient for his biopsy, I contacted Dr. Bradley, who kindly accepted to perform his fine-needle aspiration while in the hospital. Dr. Bradley felt that the lymph nodes were small and the patient would benefit of a repeat ultrasound to see if the lymph nodes are decreasing. If not, the biopsy can be performed under ultrasound guidance. Unfortunately, the patient stated that he would not stay in the hospital any longer. I had suggested that he stayed at least another night so we could continue IV hydration and work on his glycemic control as his glucose is still around 300 and I could also pursue the ultrasound and try to get his biopsy done. The patient was adamant that he would not stay in the hospital another night. We discussed risks and benefits included but not limited to progression of disease with his uncontrolled diabetes, need for readmission for insulin drip again, and . I am also concerned with his adenopathy as he continues to complain of tenderness in the area. He has already failed to arrange outpatient biopsy and I am concerned that this will happen again. I explained that this adenopathy is likely inflammatory in nature but a biopsy would help to rule out malignancy. The patient understands and states that he would not stay in the hospital any longer and "my doctor can take care of it." The patient is being discharged against medical advice to follow up with Dr. Howard as outpatient. He should have a soft tissue neck ultrasound performed as outpatient to see if the lymph nodes are still present and can be biopsied under ultrasound guidance. He also advised to follow up with Dr. Reyes's recommendations and to follow up in his clinic in 2 weeks as well as to keep his appointments with Cardiology as already scheduled. The patient did not stay long enough for me finish his discharge instructions including his medication list, so his primary care provider will have to assist with the medication reconciliation process. STATUS WHILE IN THE HOSPITAL: Observation. CONDITION AT THE TIME OF DISCHARGE: Guarded. DISPOSITION: To home against medical advice. DIET: Heart healthy, consistent carb diet. Please keep in mind this is a summarized version of this patient's hospital stay. If you need more information, please feel free to call me at [phone] or please obtain the full medical records. TIME SPENT: Approximately 60 minutes was spent to complete this discharge. [id number]/[facility] #: [id number] JANICE
== END 2018-10-07 16:30 | disposition left against medical advice (07) ==
LOC: ED 18:20 → ICU 21:32 → MED 10-07 08:46
PROVIDERS: ADMIT Pediatrics; ATTEND Internal Medicine
DX: E11.00 Type 2 diabetes mellitus with hyperosmolarity without nonketotic hyperglycemic-hyperosmolar coma (NKHHC) (principal); E86.0 Dehydration; R59.0 Localized enlarged lymph nodes; I10 Essential (primary) hypertension; M19.90 Unspecified osteoarthritis, unspecified site; I42.9 Cardiomyopathy, unspecified; E78.5 Hyperlipidemia, unspecified; F10.10 Alcohol abuse, uncomplicated; Z79.82 Long term (current) use of aspirin
CPT/HCPCS: 36415; 80048; 80053; 80061; 81003; 82803; 82947; 83036; 83605; 83690; 83735; 84443; 85025; 85610; 85730; 86140; 87040; 87641; 96372; 99285; A9270-GY; G0378; J1644; J1815

== ENCOUNTER → 2018-10-19 10:15 | Day surgery (SDC) | payer OTHER ==
[~2018-10-19 10:15] MED LIST changes: +Diazepam TAB(*) 5 MG ONE; +Heparin 2 UNITS/ML IVPREMIX* 3,000 UNIT/1,500 ML BAG IV ONE; +Iodixanol 320 (CONTRAST) 100 ML SDV ONE; +Iohexol 350 (CONTRAST) 200 ML MDV IV ONE; +Lidocaine 1% INJ* 10 MG/ML 30 ML SDV ONE; +Midazolam* 1 MG/ML 5 ML VIAL (5 MG) ONE; +NS 0.9% 1000 ML** 1,000 ML IV SCH; -Naproxen TAB* 250 MG PO ONE; +diPHENhydraMINE PO* 25 MG ONE; +fentaNYL* 50 MCG/ML 2 ML VIAL (100 MCG VIAL) ONE
--- NOTE | 2018-10-19 17:36 | CATH ---
CC: Dr. Warner Miranda, [facility]; Dr. Jaleel Howard * CARDIAC CATHETERIZATION REPORT: DATE OF PROCEDURE: 10/19/18 - [facility] CATH INDICATIONS FOR PROCEDURE: I was asked by Dr. Miranda to perform diagnostic coronary arteriography on this patient in light of a history of severe cardiomyopathy on recent hospitalization with repeat echocardiogram demonstrating still moderate to severely reduced EF of 20% to 25%, assess for the presence of coronary artery disease. PROCEDURE: Coronary arteriography. CONSENT: The patient was interviewed and examined in the holding area where the risks and benefits were explained. He understood and wished to proceed. PRE-CARDIAC CATHETERIZATION LABORATORY RESULTS: BUN and creatinine of 30 and 1.2, hemoglobin and hematocrit of 11.3 and 34 with a platelet count of 98,000. APPROACH UTILIZED: The right radial artery was assessed and initially found to be of a good size, but the Barbeau test with a D. As such, the femoral artery approach was assessed. The left femoral pulse was stronger than the right. As such, the left femoral artery approach was utilized. EQUIPMENT UTILIZED: 1. Left femoral artery sheath, a 5-[place] 11 cm Jenna sheath. 2. Diagnostic coronary catheters, a 5-[place] FL4 curved catheter for left coronary artery and a 5-[place] IM catheter for the right coronary artery, which had a superior takeoff. 3. Exchange wire was a 175 length J-tipped exchange wire. MEDICATIONS GIVEN DURING THE PROCEDURE: The patient had received Xylocaine locally. He had already received oral 5 mg of Valium and 25 mg of Benadryl. DESCRIPTION OF PROCEDURE: The patient was brought to the cardiovascular laboratory, where a formal time-out was performed. The patient was prepped and draped in a sterile fashion. The left femoral artery area was anesthetized with 1% lidocaine. The left femoral artery was cannulated and a 5-[place] sheath was placed. Coronary arteriography was performed. Following this, an injection was made into the left femoral sheath. The left femoral artery was found to be small in caliber and as such, a manual pull was performed. The total contrast used for the case was 38 cc of Omnipaque dye. The radiation exposure included 3.9 minutes of fluoro time. The air kerma radiation was 356 mGy. The DAP radiation was 2469 microgray/m2. RESULTS: CORONARY ARTERIOGRAPHY: A. Left coronary artery: 1. Left main - the left main had calcium noted in it, extending somewhat into the proximal LAD. There was minimal luminal irregularities involving the left main. No significant stenosis was seen. 2. Left anterior descending artery - the left anterior descending artery supplied a thin first diagonal branch followed by a slightly larger caliber second diagonal branch followed by a third thin diagonal branch. The artery turned on to the inferior surface of the heart and supplied a portion of the distal inferior wall. There was no significant lesion seen throughout the course of the vessel. The calcium was noted in the proximal portion with an area of perhaps 15% to 20% narrowing at most seen. 3. Circumflex artery - a nondominant vessel supplying a thin first obtuse marginal branch followed by a large obtuse marginal branch, which extended to the inferoapical region. There were minimal luminal irregularities noted. No significant lesion was seen. B. Right coronary artery - the ostium of the right coronary artery into the aortic cusp showed calcification present. The right coronary artery supplied the PDA and 3 posterior left ventricular branches. The proximal portion had mild to moderate coronary artery disease with approximately 35% narrowing seen. Of note, the PDA itself extended into the proximal and mid inferior wall, but did not extend to the apical region. There was no significant lesion seen throughout the course of this vessel as well. OVERALL ASSESSMENT: No significant stenotic coronary artery disease to explain overall severe left ventricular systolic dysfunction on the basis of coronary artery ischemia. This information was shared with Dr. Warner Miranda, the patient's primary metal burrer. Further management will be under his guidance. Of note his platelet count was also mildly reduced at 98,000. This was also brought to Dr. Miranda's attention. [id number]/[facility] #: [id number] [facility]
[2018-10-19 17:41] LABS: BUN/Creatinine Ratio 25.8 (8-20); Blood Urea Nitrogen 33 mg/dL (6-24); CO2 Carbon Dioxide 21 mmol/L (22-32); Calcium 10.3 mg/dL (8.6-10.3); Chloride 97 mmol/L (101-111); EGFR African American 69.6 (>60); EGFR Non-African American 57.5 (>60); Glucose 303 mg/dL (70-100); Sodium 132 mmol/L (135-145)
[2018-10-19 17:46] LABS: Anion Gap 14 mmol/L (2-11)
[2018-10-19 18:45] VITALS: BP 97/70
== END | disposition home or self-care (01) ==
LOC: CHICATH 10:15
PROVIDERS: ATTEND Specialist
DX: I42.9 Cardiomyopathy, unspecified (principal); I34.0 Nonrheumatic mitral (valve) insufficiency; E11.9 Type 2 diabetes mellitus without complications; R94.31 Abnormal electrocardiogram [ECG] [EKG]; I10 Essential (primary) hypertension; M19.90 Unspecified osteoarthritis, unspecified site; Z79.82 Long term (current) use of aspirin; Z87.891 Personal history of nicotine dependence
CPT/HCPCS: 36415; 76937; 80048; 93454; A9270-GY; C1887; J1644; J2250; J3010

== ENCOUNTER 2024-05-26 08:50 | Observation (INO) ==
[2024-05-26] MEDS: Lactated Ringers 1000 ml BAG 1,000 ML IV ONE ×2 (09:15→12:54)
[2024-05-26 09:30] LABS: Hematocrit 34.5 % (38-53); Hemoglobin 11.1 g/dL (13.2-16.3); Mean Corpuscular Hemoglobin 31.2 pg (27-33); Mean Corpuscular Hgb Conc 32.2 g/dL (31-36); Mean Platelet Volume 11.7 fL (7.5-11.2); Platelet Count 168 10^3/uL (150-450); Red Blood Count 3.55 10^6/uL (4.06-5.63); Red Cell Distribution Width 14.7 % (12-17); White Blood Count 17.3 10^3/uL (3.6-10.2)
[2024-05-26 09:48] LABS: Rapid Strep Molecular Negative (Negative)
[2024-05-26 10:04] LABS: Albumin/Globulin Ratio 1.3 (1-3); Calcium 9.6 mg/dL (8.6-10.3); Creatinine, Serum 2.61 mg/dL (0.67-1.17); Globulin 3.2 g/dL (2-4); Magnesium 2.5 mg/dL (1.9-2.7); Potassium 4.5 mmol/L (3.5-5.0); Total Bilirubin 0.6 mg/dL (0.2-1.0); Total Protein 7.2 g/dL (6.4-8.9); eGFR CKD-EPI 26.4 (>60)
[2024-05-26 10:40] LABS: ABS Lymphocytes 0.7 10^3/uL (1.0-4.8); ABS Monocytes 1.6 10^3/uL (0.0-1.1); Eosinophil % 0.1 %; Lymphocyte % 4.2 %
[2024-05-26 11:05] LABS: Venous Bicarbonate HCO3 17.2 mmol/L (24-28)
[2024-05-26 12:02] LABS: Urine Appearance Clear; Urine Bacteria Absent /HPF (Absent); Urine Bilirubin Negative (Negative); Urine Blood Negative (Negative); Urine Color Light-Yellow; Urine Glucose 4+ (>=1000 mg/dL) (Negative); Urine Ketones 1+ (Negative); Urine Nitrite Negative (Negative); Urine Protein Negative (Negative); Urine Red Blood Cell Trace(0-2/hpf) /HPF (0-Trace); Urine Sperm Present /HPF (Absent); Urine Urobilinogen Negative (Negative); Urine White Blood Cell Trace(0-5/hpf) /HPF (0-Trace)
[2024-05-26 13:58] LABS: Calcium 9.3 mg/dL (8.6-10.3); Creatinine, Serum 2.11 mg/dL (0.67-1.17); Potassium 3.7 mmol/L (3.5-5.0); eGFR CKD-EPI 34.1 (>60)
[2024-05-26] MEDS ORDERED: Sulfur Hexaflouride MICROSPHR 25 MG VIAL IV PRN (14:30)
[2024-05-26] MEDS ORDERED: Dextrose 50% Syringe 50 ml 25 GM/50 ML SYRINGE IV PUSH PRN (14:54)
[2024-05-26] MEDS: Lactated Ringers 1000 ml BAG 1,000 ML IV SCH (15:31)
[2024-05-26 17:32] LABS: Calcium 8.3 mg/dL (8.6-10.3); Creatinine, Serum 1.64 mg/dL (0.67-1.17); Magnesium 2.1 mg/dL (1.9-2.7); Phosphorus 3.7 mg/dL (2.5-5.0); Potassium 3.5 mmol/L (3.5-5.0); eGFR CKD-EPI 46.1 (>60)
[2024-05-26 20:19] LABS: Hematocrit 28.5 % (38-53); Hemoglobin 9.6 g/dL (13.2-16.3); Mean Corpuscular Hemoglobin 31.7 pg (27-33); Mean Corpuscular Hgb Conc 33.7 g/dL (31-36); Mean Corpuscular Volume 94.1 fL (80-97); Mean Platelet Volume 11.2 fL (7.5-11.2); Platelet Count 145 10^3/uL (150-450); Red Blood Count 3.03 10^6/uL (4.06-5.63); Red Cell Distribution Width 13.8 % (12-17); White Blood Count 17.6 10^3/uL (3.6-10.2)
[2024-05-26 20:31] LABS: INR 0.96 (0.85-1.14)
[2024-05-26] MEDS: Heparin 5000 UNITS/ML 1 mL VIAL SUBCUT SCH (20:32)
[2024-05-26] MEDS: KCL 20 MEQ/100 ML IVPREMIX 20 MEQ/100 ML BAG IV SCH (20:32)
[2024-05-26] MEDS: Carbidopa/Levodop 25/100 MG TAB PO SCH (20:33)
[2024-05-26 20:59] LABS: Calcium 9.4 mg/dL (8.6-10.3); Creatinine, Serum 1.52 mg/dL (0.67-1.17); Magnesium 2.2 mg/dL (1.9-2.7); Phosphorus 2.8 mg/dL (2.5-5.0); Potassium 3.7 mmol/L (3.5-5.0); eGFR CKD-EPI 50.5 (>60)
[2024-05-26 21:32] LABS: ABS Basophils 0.1 10^3/uL (0.0-0.1); ABS Lymphocytes 1.1 10^3/uL (1.0-4.8); ABS Monocytes 2.1 10^3/uL (0.0-1.1); ABS Neutrophils 14.4 10^3/uL (1.5-7.6); RBC Morphology Normal (Normal)
[2024-05-27 00:37] LABS: Calcium 8.8 mg/dL (8.6-10.3); Creatinine, Serum 1.26 mg/dL (0.67-1.17); Magnesium 2.2 mg/dL (1.9-2.7); Phosphorus 2.6 mg/dL (2.5-5.0); Potassium 4.3 mmol/L (3.5-5.0); eGFR CKD-EPI 63.3 (>60)
[2024-05-27 04:31] LABS: ABS Basophils 0.1 10^3/uL (0.0-0.1); ABS Lymphocytes 1.1 10^3/uL (1.0-4.8); ABS Monocytes 1.4 10^3/uL (0.0-1.1); ABS Neutrophils 9.9 10^3/uL (1.5-7.6); ABS Nucleated RBC 0.03 10^3/ul; Eosinophil % 0.2 %; Hematocrit 27.1 % (38-53); Hemoglobin 9.2 g/dL (13.2-16.3); Lymphocyte % 8.5 %; Mean Corpuscular Hemoglobin 32.1 pg (27-33); Mean Corpuscular Hgb Conc 34.1 g/dL (31-36); Mean Corpuscular Volume 94.3 fL (80-97); Mean Platelet Volume 11.5 fL (7.5-11.2); Nucleated Red Blood Cells % 0.2 %/100WBC (0.0-0.8); Platelet Count 127 10^3/uL (150-450); Red Blood Count 2.87 10^6/uL (4.06-5.63); Red Cell Distribution Width 13.7 % (12-17); White Blood Count 12.4 10^3/uL (3.6-10.2)
[2024-05-27 06:10] LABS: Calcium 8.8 mg/dL (8.6-10.3); Creatinine, Serum 1.24 mg/dL (0.67-1.17); Magnesium 2.2 mg/dL (1.9-2.7); Phosphorus 2.4 mg/dL (2.5-5.0); Potassium 4.3 mmol/L (3.5-5.0); eGFR CKD-EPI 64.5 (>60)
[2024-05-27] MEDS: Empagliflozin 25 MG TAB PO SCH (10:22)
[2024-05-27] MEDS: Ondansetron 4 mg VIAL 2 MG/ML 2 ml VIAL IV PRN (10:22)
[2024-05-27 16:06] VITALS: BP 109/64
== END 2024-05-27 16:05 | disposition home or self-care (01) ==
LOC: ED 08:50 → EDHOLD 08:50 → ICU 17:02
PROVIDERS: ADMIT Internal Medicine Critical Care Medicine; ATTEND Internal Medicine Critical Care Medicine